=== PATIENT | male | born 1945 | race Caucasian/White ===

== ENCOUNTER → 2019-11-03 09:21 | Outpatient (CLI) | payer MEDICARE, OTHER, SELFPAY ==
--- NOTE | 2019-11-03 09:24 | DI.RAD.S_ITS ---
PROCEDURE: XR CHEST 2V INDICATIONS: Cough, right upper rattles on exam TECHNIQUE: 2 views of the chest were acquired. COMPARISON: None. FINDINGS: Surgical changes and devices: None. Lungs and pleura: Lungs are clear. No pleural effusions or pneumothorax. Mediastinum: Mediastinal contours are normal. Heart size is normal. Bones and chest wall: No suspicious bony abnormalities. Soft tissues appear unremarkable. IMPRESSION: No acute cardio pulmonary pathology. Dictated by: Michael Arroyo M.D. on 11/03/2019 at 9:47 Approved by: Michael Arroyo M.D. on 11/03/2019 at 9:51
== END ==
PROVIDERS: Visit Provider Nurse Practitioner
DX: R05 Cough (principal)
CPT/HCPCS: 71046

== ENCOUNTER → 2020-06-28 11:58 | Outpatient (CLI) | payer MEDICARE, OTHER, SELFPAY ==
--- NOTE | 2020-06-28 12:00 | DI.CT.S_ITS ---
PROCEDURE: CT CHEST ABD PEL W CON INDICATIONS: pancreatic cancer TECHNIQUE: After the administration of oral and intravenous contrast, 5 mm thick sections acquired from the lung apices to the symphysis. 5 mm coronal and sagittal reformats were performed, with additional 7 mm coronal MIP reformats through the lungs. For radiation dose reduction, the following was used: automated exposure control, adjustment of mA and/or kV according to patient size. COMPARISON: Outside Facility, , CT THORAX/ABDOMEN/PELVIS WITH CONTRAST, 05/15/2020, 12:43. FINDINGS: Image quality: Excellent. CHEST: Lungs and pleura: No acute airspace opacities. No pleural effusions or pneumothorax. Central and peripheral airways appear patent and normal in caliber. 4mm right upper lobe nodule, new compared to prior exam. Mediastinum: Heart size is normal. No pericardial effusion. No mediastinal or hilar adenopathy by size criteria. Thoracic aorta and central pulmonary arteries are normal in size. Minimal residual thrombus in the left pulmonary artery compared to prior exam. Esophagus is normal in caliber. No hiatal hernia. Chest wall: No axillary or supraclavicular adenopathy by size criteria. Thyroid gland demonstrates bilateral low attenuation foci, unchanged. ABDOMEN: Solid organs: Liver demonstrates multiple low attenuation foci. Several have overall demonstrated interval increases in size. The posterior medial lesion on series 2, image 57 has increased in size measuring 39 mm AP x 48 mm transverse compared to 28 mm AP x 26 mm transverse. The inferior lateral lesion, has also increased in size measuring 35 mm AP x 29 mm transverse compared to 15 mm AP x 20 mm transverse. In addition, a faintly visible 10 mm x 8 mm left hepatic lobe focus on series 2, image 59 appears new versus present as punctate lesion on prior exam. Remaining low-attenuation foci are unchanged. Renal cysts are unchanged. Gallbladder is unremarkable . Biliary system is non dilated. Pancreas enhances normally. Spleen is normal in size and enhancement. No adrenal nodules. Kidneys demonstrate normal size and enhancement, without hydronephrosis. Peritoneum and bowel: Bowel loops demonstrate normal wall thickness and caliber. No free fluid or air. Soft tissue nodule within the anterior mesenteric fat of the abdomen seen on series 2, image 69 mm compared to 13 mm on prior exam. A 2nd mesenteric soft tissue focus is noted in the right anterolateral abdomen on series 2, image 74 measuring 6 mm compared to 5 mm on prior exam. In addition, there is an ill-defined low-attenuation mass at the pancreatic tail in direct approximation to the gastric wall measuring approximately 20 mm in transverse dimension, unchanged and best seen on series 2, image 62. Nodes and vessels: No retroperitoneal or mesenteric adenopathy by size criteria. Aorta and inferior vena cava are normal in size. Miscellaneous: No ventral hernias. PELVIS: Genitourinary: Bladder wall thickness is normal. Miscellaneous: Bilateral fat containing inguinal hernias are present. Bones: Unchanged punctate sclerosis within the right lateral 7th rib. Unchanged sclerosis in the left lateral 5th rib. No vertebral body compression fractures. IMPRESSION: 1. New 4 mm right upper lobe nodule. Given history of neoplasm, finding is concerning for metastatic disease. Close interval follow-up is recommended 2. Minimal residual pulmonary embolism. 3. Interval increase in size of low-attenuation hepatic foci previously noted as metastatic disease. New versus punctate focus compared to prior exam in the left lobe is identified also most consistent with metastatic disease. 4. Unchanged sclerosis within the ribs as above, suspicious for metastatic disease particularly on the left. 5. Unchanged soft tissue densities within the mesenteric fat of the abdomen most concerning peritoneal carcinomatosis. 6. Unchanged low-attenuation foci within pancreas in direct approximation the liver as above. Dictated by: Dara Mejia M.D. on 07/02/2020 at 10:39 Approved by: Dara Mejia M.D. on 07/02/2020 at 11:03
== END ==
PROVIDERS: Referring Provider Internal Medicine Hematology & Oncology; Visit Provider Internal Medicine Hematology & Oncology
DX: C25.2 Malignant neoplasm of tail of pancreas; C78.7 Secondary malignant neoplasm of liver and intrahepatic bile duct; R91.1 Solitary pulmonary nodule; M89.9 Disorder of bone, unspecified; M79.9 Soft tissue disorder, unspecified
CPT/HCPCS: 71260; 74177; Q9967

== ENCOUNTER → 2020-11-13 15:50 | Outpatient (CLI) | payer MEDICARE, OTHER, SELFPAY ==
--- NOTE | 2020-11-13 15:52 | DI.RAD.S_ITS ---
PROCEDURE: XR CHEST 2V INDICATIONS: increased SHORTNESS OF BREATH TECHNIQUE: 2 views of the chest were acquired. COMPARISON: [facility], CR, XR CHEST 2V, 11/03/2019, 9:20. FINDINGS: Surgical changes and devices: Interval Port-A-Cath placement Lungs and pleura: Lungs are clear. Minimal linear atelectasis in the right lung base. No pleural effusions or pneumothorax. Mediastinum: Mediastinal contours are normal. Heart size is normal. Bones and chest wall: No suspicious bony abnormalities. Soft tissues appear unremarkable. IMPRESSION: Port-A-Cath in satisfactory position. No evidence acute pulmonary process. Dictated by: Vinod Huff M.D. on 11/13/2020 at 16:23 Approved by: Vinod Huff M.D. on 11/13/2020 at 16:24
== END ==
PROVIDERS: Referring Provider Internal Medicine; Visit Provider Internal Medicine
DX: Z45.2 Encounter for adjustment and management of vascular access device (principal); C25.9 Malignant neoplasm of pancreas, unspecified; R06.02 Shortness of breath
CPT/HCPCS: 71046

== ENCOUNTER → 2020-11-21 10:45 | Outpatient (CLI) | payer MEDICARE, OTHER, SELFPAY ==
--- NOTE | 2020-11-21 11:20 | DI.CT.S_ITS ---
PROCEDURE: CT CHEST ABD PEL WO CON INDICATIONS: Restaging pancreatic cancer, metastatic TECHNIQUE: After the administration of oral contrast, 5 mm thick sections acquired from the lung apices to the symphysis pubis. 5 mm thick coronal and sagittal reformats acquired, with additional 7 mm coronal MIP reformats through the lungs. For radiation dose reduction, the following was used: automated exposure control, adjustment of mA and/or kV according to patient size. COMPARISON: Outside Facility, RG, CT THORAX/ABDOMEN/PELVIS WITH CONTRAST, 05/15/2020, 12:43. [facility], CT, CT CHEST ABD PEL W CON, 06/28/2020, 13:27. FINDINGS: Image quality: Excellent. CHEST: Lungs and pleura: Interval increase in size of subcentimeter right apical nodule measuring 5 x 8 mm, previously 4 x 4 mm. Interval development of additional 4 mm pulmonary nodule seen in the right upper lobe image 16/3 as well as multiple anterior right upper lobe nodules measuring 3 mm seen on image 24/3. Additionally, multiple new left-sided subcentimeter pulmonary nodules. Please see montage image for detailed locations. Mediastinum: Heart size is normal. Coronary artery calcifications are present. No pericardial effusion. No mediastinal adenopathy by CT size criteria. Thoracic aorta and central pulmonary arteries are normal in size. Esophagus is normal in caliber. Small hiatal hernia Chest wall: No axillary or supraclavicular adenopathy by size criteria. Thyroid is grossly unremarkable ABDOMEN: Ill-defined hepatic metastasis present in the right lobe/dome measuring 7.8 x 6.2 cm, previously 4.4 x 3.5 cm. Additional hepatic metastases also noted, with interval progression since the prior study from 06/28/20. 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 Multiple confluent hypodense lesions in the inferior to the liver have also progressed. There are additional background low-attenuation liver cysts or treated metastases. The gallbladder is grossly unremarkable. Interval enlargement of soft tissue mass involving the body/tail the pancreas now measuring 3.8 x 3.8 cm, previously 2.3 x 2.5 cm again closely abutting the posterior gastric wall. Spleen is normal in size. No adrenal nodules. Left parapelvic cysts. Peritoneum and bowel: Small and large bowel loops are normal in caliber and wall thickness. No free fluid or air. Nodes and vessels: Aorta unremarkable. There is an enlarged mesenteric lymph node measuring up to 1.3 cm on image 77/4. Miscellaneous: Small periumbilical hernia.. PELVIS: Genitourinary: Bladder wall thickness is normal. Small bilateral fat containing inguinal hernias. Bones: Sclerotic left 5th rib lesion is unchanged. Sclerotic 7th right rib lesion is progressed since the prior study. IMPRESSION: Interval progression in soft tissue mass involving the body/tail the pancreas, which again closely abuts the posterior gastric wall. Progressive hepatic and pulmonary metastases as detailed above since 06/28/20. Increasing focal sclerosis involving the right lateral 7th rib suspicious for osseous metastatic disease. A previously seen left 5th rib sclerotic lesion is unchanged Enlarging mesenteric lymph node, also suspicious for metastatic involvement. Additional chronic and incidental findings as above. Dictated by: Lucas Pryor M.D. on 11/21/2020 at 14:37 Approved by: Lucas Pryor M.D. on 11/21/2020 at 15:07
== END ==
PROVIDERS: Referring Provider Internal Medicine Hematology & Oncology; Visit Provider Internal Medicine Hematology & Oncology
DX: C25.9 Malignant neoplasm of pancreas, unspecified (principal); C78.7 Secondary malignant neoplasm of liver and intrahepatic bile duct; C78.00 Secondary malignant neoplasm of unspecified lung; C79.51 Secondary malignant neoplasm of bone; C77.9 Secondary and unspecified malignant neoplasm of lymph node, unspecified
CPT/HCPCS: 71250; 74176

== ENCOUNTER → 2020-11-26 08:40 | Oncology outpatient (ONC) | payer MEDICARE, OTHER, SELFPAY ==
[2020-06-27 12:45] VITALS: BP 140/72; PULSE 84; RESP 18; TEMP 36.7; O2SAT 100
--- NOTE | 2020-06-27 12:51 | P.CONONC_ITS ---
History of Present Illness - Data of Consult Patient: new to practice Consult date: 06/27/20 Requesting Physician: Dr. Vinnie Swanson MD [facility] Primary Care Provider: Not yet established in [place], [place]. - Consult Narrative Reason for consult: Pancreatic cancer Narrative: Antonio Lam is a 74 year old male. 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 He first noticed abnormal umbilicus with discharge with [address] 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 The pathology showed metastatic adenocarcinoma. The comment indicated that represented a sister Patti briscoe. Cytokeratin 7 was positive. Cytokeratin 20, TTF -1, CD X -2 and P [address] chest abdomen and pelvis from 04/21/2018 showed a pancreatic tail mass 3.2 x 1.9 x 1.6 cm with no evidence of distant metastasis aside from known umbilical metastasis. Patient underwent chemotherapy with Gemzar and Abraxane completed in August 2018. He tolerated well. He said he was working during chemotherapy The Abraxane dosage was decreased by 25% for cycle 11 and 12 infusion. He has been under CT image surveillance scan every 2 months On 08/28/2019, CT showed the mass of the tail of the pancreas increased from 1.6 x 1.0 cm to 1.7 x 1.8 cm, no other sites of disease were seen. PET scan showed uptake in mitch pancreatic mass. He then completed stereotactic radiation therapy at the end of September 2019. In 01/2020 CT scan showed metastasis and PET scan confirmed metastasis found in ribs, lymph nodes, intestine, groin etc. He was then started on FOLFIRINOX. After 4th cycle, he said no to more chemoterhapy. On 05/15/2020 CT scan showed umbilical and had clinic masses appeared to have decreased, the left inguinal mass appear to increase her by progressive disease within the liver was noted as well as a new large saddle embolus. He was referred to ER. He was treated with heparin x 2 days, then Xarelto [address] Vinnie Long at [facility] recommended restarting gemzar and abraxane, and gemline testing. On 06/03/2020. BRCA1 and BRCA2 analysis showed no clinically significant mutation identified. He also underwent [employer] Hereditary Cancer Update Test, and no clinically significant mutation identified. VUS were noted including GALNT12 c.359G>C (p.[id number]), NTHL1 c.527T>C (p.[id number]), and RNF43 c.575C>T (p.[id number]). His works in here and the decided to transfer care from [facility] to [facility]. He denies shortness of breath. For the last couple of weeks, he did noticed heavier breathing when going uphill, but not down hill, like '[id number] feet' high. He is not on any chemotherapy at present. He is also worried about his blood pressure medicine losarten. He had used it for years. His blood pressure now has been way too low recently. He is feeling light-headed. He has cut the dosage, but her blood pressue is still low. Up until now he has not establish care with PCP or biology internship yet here. He reports no pain except pain at the sister Patti bell. He denies cough. He denies abdominal pain. His weight is now getting back up. He came in today with his . His most recent CA 19-9 was 1735 on 04/19/2020. Patient reports pain?: No Home Medications and Allergies Home Medications Medication Instructions Recorded Confirmed Type atorvastatin 20 mg PO DAILY 06/27/20 06/27/20 History dutasteride-tamsulosin 1 cap PO DAILY 06/27/20 06/27/20 History losartan-hydrochlorothiazide 1 tab DAILY 06/27/20 06/27/20 History nebivolol [Bystolic] 10 mg DAILY 06/27/20 06/27/20 History rivaroxaban [Xarelto] 20 mg PO DAILY 06/27/20 06/27/20 History Allergies Allergy/AdvReac Type Severity Reaction Status Date / Time No Known Drug Allergies Allergy Verified 11/03/19 08:48 Medical History - Medical, Surgical, Family History Medical History: Medical History (Last Updated 06/27/20 @ 13:19 by Kylie House MD) Hyperlipidemia Hypertension Surgical History: Surgical History (Last Updated 06/27/20 @ 13:21 by Kylie House MD) History of eyelid surgery History of sinus surgery Hx of inguinal hernia surgery Status post Mohs surgery for basal cell carcinoma Family History: Family History (Last Updated 06/27/20 @ 13:22 by Kylie House MD) Father Leukemia - Social History Smoking Status: Never smoker Substance Use Type: does not use Alcohol Intake: never Review of Systems - Patient Self-Reported Symptoms SR Constitution: Fatigue/Malaise All systems PM: reviewed and no additional remarkable complaints except as stated Exam Vital signs: Vital Signs Temp Pulse Resp BP Pulse Ox 06/27/20 12:45 98.1 F 84 18 140/72 100 Intake and Output 06/26/20 06/27/20 06/27/20 23:59 07:59 15:59 Other: Weight 86.8 kg Patient Weight 06/27/20 23:59 Weight 86.8 kg - Constitutional positive no acute distress, positive average body habitus, positive cooperative - Routine HEENT Exam Head: Present: normocephalic, atraumatic Eye: Present: EOMI, PERRL, normal accommodation. Absent: conjunctival icterus - Routine Neck Exam Present: supple. Absent: lymphadenopathy - Routine Chest/Breast/Axilla Exam Axillae: Absent: lymphadenopathy - Routine Respiratory Exam Present: Clear to auscultation bilaterally. Absent: wheezes - Routine Cardiovascular Exam Present: RRR, S1, S2. Absent: murmur, gallop, rubs - Routine Abdominal Exam Present: soft. Absent: tenderness, organomegaly Comments: Sister Loyd Huff nodule noted with discharge. - Routine Extremities Exam Absent: edema - Routine Neurological Exam Present: alert, oriented X3, CN II-XII intact. Absent: sensory deficit, motor deficit - Routine Psychiatric Exam Present: normal affect Results - Labs Laboratory Last Values WBC 6.1 X10^3/uL (4.5-11.0) 06/27/20 14:29 RBC 2.32 X10^6/uL (4.5-5.9) L 06/27/20 14:29 Hgb 6.0 g/dL (13.5-17.5) L* 06/27/20 14:29 Hct 19.4 % (41-53) L* 06/27/20 14:29 MCV 83.7 fL (80-100) 06/27/20 14:29 MCH 25.7 PG (26-34) L 06/27/20 14:29 MCHC 30.7 % (30-36) 06/27/20 14:29 RDW 18.8 % (11.6-14.8) H 06/27/20 14:29 Plt Count 141 X10^3/uL (150-400) L 06/27/20 14:29 Neut % (Auto) 71.8 % (50-75) 06/27/20 14:29 Lymph % (Auto) 14.9 % (25-40) L 06/27/20 14:29 [place] % (Auto) 9.6 % (3-14) 06/27/20 14:29 Eos % (Auto) 3.0 % (2-4) 06/27/20 14:29 Baso % (Auto) 0.7 % (0-2) 06/27/20 14:29 Neut # (Auto) 4400 /uL (6813-3486) 06/27/20 14:29 Lymph # (Auto) 900 /uL (8442-0835) L 06/27/20 14:29 [place] # (Auto) 600 /uL (0-900) 06/27/20 14:29 Eos # (Auto) 200 /uL (0-450) 06/27/20 14:29 Baso # (Auto) 0 /uL (0-100) 06/27/20 14:29 Sodium 139 mmol/L (137-145) 06/27/20 14:29 Potassium 3.9 mmol/L (3.4-5.1) 06/27/20 14:29 Chloride 107 mmol/L (98-107) 06/27/20 14:29 Carbon Dioxide 24 mmol/L (22-32) 06/27/20 14:29 BUN 22 mg/dL (9-20) H 06/27/20 14:29 Creatinine 0.85 mg/dL (0.66-1.25) 06/27/20 14:29 Estimated GFR > 60.0 mL/min (>60) 06/27/20 14:29 BUN/Creatinine Ratio 25.9 (6-22) H 06/27/20 14:29 Glucose 121 mg/dL (80-110) H 06/27/20 14:29 Calcium 8.7 mg/dL (8.4-10.2) 06/27/20 14:29 Total Bilirubin 0.4 mg/dL (0.2-1.3) 06/27/20 14:29 AST 20 IU/L (17-59) 06/27/20 14:29 ALT 17 IU/L (<50) 06/27/20 14:29 Alkaline Phosphatase 97 U/L (38-126) 06/27/20 14:29 Total Protein 6.3 g/dL (6.3-8.2) 06/27/20 14:29 Albumin 3.8 g/dL (3.5-5.0) 06/27/20 14:29 Globulin 2.5 g/dL (1.7-4.1) 06/27/20 14:29 Albumin/Globulin Ratio 1.5 (1.0-2.8) 06/27/20 14:29 CA 19-9 Antigen 1792 U/mL (0-35) H 06/27/20 14:29 Blood Type A Positive 06/27/20 14:33 Antibody Screen Negative 06/27/20 14:33 Crossmatch See Detail 06/27/20 14:33 Assessment and Plan (1) Pancreatic malignant neoplasm Overview: 74 year old with metastatic pancreatic cancer diagnosed on 04/08/2018 after punch biopsy of a sister Patti briscoe. After diagnosis, he has received Gemzar and Abraxane compelte in 08/2018. During to disease progression in 01/2020, he received FOLFIRINOX for [address] 05/15/2020 showed evidence of response and incidental findings of large saddle pulmonary embolism. He was started on heparin and then Xarelto. On 06/03/2020. BRCA1 and BRCA2 analysis showed no clinically significant mutation identified. He also underwent [employer] Hereditary Cancer Update Test, and no clinically significant mutation identified. VUS were noted including GALNT12 c.359G>C (p.Woy199Mcl), NTHL1 c.527T>C (p.[id number]), and RNF43 c.575C>T (p.[id number]). Dr. Vinnie Long, his medical oncologist, at [facility] recommended restarting gemzar and abraxane. His works in here and he decided to transfer care from [facility] to [facility]. Assessment: I explained to the patient that I would obtain repeat labs and scan to evaluate the current disease status before moving forward with more chemotherapy. Meanwhile, he will try to establish care with primary care at [place], [place]. Plan: CBC, CMP, and CA 19-9 CT CAP w/contrast RTC in 2 weeks
[2020-06-27 15:14] LABS: Add Manual Diff / Slide Review NO; Basophils Absolute Auto 0 /uL (0-100); Basophils Percent Auto 0.7 % (0-2); Eosinophils Absolute Auto 200 /uL (0-450); Lymphocytes Absolute Auto 900 /uL (1100-4500); Lymphocytes Percent Auto 14.9 % (25-40); Mean Corpuscular HGB Conc 30.7 % (30-36); Mean Corpuscular Hemoglobin 25.7 PG (26-34); Mean Corpuscular Volume 83.7 fL (80-100); Monocytes Absolute Auto 600 /uL (0-900); Monocytes Percent Auto 9.6 % (3-14); Neutrophils Absolute Auto 4400 /uL (1500-7000); Neutrophils Percent Auto 71.8 % (50-75); Platelet Count 141 X10^3/uL (150-400); Red Blood Cell Count 2.32 X10^6/uL (4.5-5.9); Red Cell Distribution Width 18.8 % (11.6-14.8); White Blood Cell Count 6.1 X10^3/uL (4.5-11.0)
[2020-06-27 15:16] LABS: Hematocrit 19.4 % (41-53)
[2020-06-27 15:48] LABS: Alanine Aminotransferase 17 IU/L (<50); Albumin 3.8 g/dL (3.5-5.0); Albumin Globulin Ratio 1.5 (1.0-2.8); Alkaline Phosphatase 97 U/L (38-126); Aspartate Aminotransferase 20 IU/L (17-59); BUN Creatinine Ratio 25.9 (6-22); Bilirubin Total 0.4 mg/dL (0.2-1.3); Blood Urea Nitrogen 22 mg/dL (9-20); Calcium 8.7 mg/dL (8.4-10.2); Carbon Dioxide 24 mmol/L (22-32); Chloride 107 mmol/L (98-107); Estimated Glomerular Filt Rate > 60.0 mL/min (>60); Globulin 2.5 g/dL (1.7-4.1); Glucose 121 mg/dL (80-110); HEMOLYSIS < 15 (0-50); Potassium 3.9 mmol/L (3.4-5.1); Sodium 139 mmol/L (137-145); Total Protein 6.3 g/dL (6.3-8.2)
[2020-06-27 17:23] VITALS: BP 145/69; PULSE 81; RESP 16; TEMP 36.7
[2020-06-27 17:45] VITALS: BP 140/70; PULSE 78; RESP 16; TEMP 36.8
[2020-06-27 19:56] VITALS: BP 139/70; PULSE 77; RESP 18; TEMP 36.8
[2020-06-28 06:06] LABS: Cancer (Carbohydrate) Ag 19-9 1792 U/mL (0-35)
[2020-06-28 14:06] VITALS: BP 151/77; PULSE 74; RESP 18; TEMP 37.5; O2SAT 100
[2020-06-28 14:10] VITALS: BP 142/76; PULSE 74; RESP 20; TEMP 36.9
[2020-06-28 14:40] VITALS: BP 142/68; PULSE 73; RESP 18; TEMP 37.2
--- NOTE | 2020-06-28 14:58 | PC.NURSE ---
Addendum entered by Marilou Haynes R.N. 06/28/20 15:18: Pt asymptomatic, ambulated to BR indep using IV pole with steady gait. Voided X1. Pt given egg and tuna half sandwiches. Original Note: Day Shift OP infusion- Pt arrived to unit up ad herlinda around 1400, settled into room 202 in recliner chair. Oriented to call light hanging on IV pole. Right chest port already accessed, clear dressing CDI. Flushed well with brisk blood return. VSS, afebrile. Consent for blood transfusion signed yesterday and pt confirms his signature on the written consent and verbally agrees with 2nd unit of transfusion today. RBC transfusion started slowly per hospital policy and protocol. VSS, afebrile and infusion increased to 150 ml/hr. Pt given water, orange juice, jello and pudding per his request. No further voiced concerns.
[2020-06-28 17:15] VITALS: BP 129/65; PULSE 75; RESP 16; TEMP 36.8
[2020-07-04 08:46] VITALS: BP 147/84; PULSE 80; RESP 18; TEMP 36.6; O2SAT 98
--- NOTE | 2020-07-04 08:52 | P.PNONC_ITS ---
PN -Subjective Interval history: ID/CC: 74 year old with recurrent metastatic pancreatic cancer HPI: Antonio Lam is a 74 year old male. 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 He first noticed abnormal umbilicus with discharge w ith [address] Michael Wen, his retail business analyst, did punch biopsy on 04/08/2018. The pathology showed metastatic adenocarcinoma. The comment indicated that represented a sister Patti briscoe. Cytokeratin 7 was positive. Cytokeratin 20, TTF -1, CD X -2 and P [address] chest abdomen and pelvis from 04/21/2018 showed a pancreatic tail mass 3.2 x 1.9 x 1.6 cm with no evidence of distant metastasis aside from known umbilical metastasis. Patient underwent chemotherapy with Gemzar and Abraxane completed in August 2018. He tolerated well. He said he was working during chemotherapy The Abraxane dosage was decreased by 25% for cycle 11 and 12 infusion. He has been under CT image surveillance scan every 2 months On 08/28/2019, CT showed the mass of the tail of the pancreas increased from 1.6 x 1.0 cm to 1.7 x 1.8 cm, no other sites of disease were seen. PET scan showed uptake in the pancreatic mass. He then completed stereotactic radiation therapy at the end of September 2019. In 01/2020 CT scan showed metastasis and PET scan confirmed metastasis found in ribs, lymph nodes, intestine, groin etc. He was then started on FOLFIRINOX. After 4th cycle, he said no to more chemoterhapy. On 05/15/2020 CT scan showed umbilical and had clinic masses appeared to have decreased, the left inguinal mass appear to increase her by progressive disease within the liver was noted as well as a new large saddle embolus. He was referred to ER. He was treated with heparin x 2 days, then Xarelto [address] Vinnie Long at [facility] recommended restarting gemzar and abraxane, and germline testing. On 06/03/2020. BRCA1 and BRCA2 analysis showed no clinically significant mutation identified. He also underwent [employer] Hereditary Cancer Update Test, and no clinically significant mutation identified. VUS were noted including GALNT12 c.359G>C (p.[id number]), NTHL1 c.527T>C (p.[id number]), and RNF43 c.575C>T (p.[id number]). His works in here and the decided to transfer care from [facility] to [facility]. He denies shortness of breath. For the last couple of weeks, he did noticed heavier breathing when going uphill, but not down hill, like '14371 feet' high. He is not on any chemotherapy at present. He is also worried about his blood pressure medicine losartan. He had used it for years. His blood pressure now has been way too low recently. He is feeling light-headed. He has cut the dosage, but her blood pressure is still low. Up until now he has not establish care with PCP or vice president of recruiting yet here. He reports no pain except pain at the sister Patti Huff node. He denies cough. He denies abdominal pain. His weight is now getting back up. He came in today with his . His most recent CA 19-9 was 1735 on 04/19/2020. Interval Events Since his previous visit, patient underwent CT of the chest abdomen pelvis on 06/28/2020. The scan showed new 4 mm right upper lobe nodule, interval increase in size of low attenuation hepatic foci, unchanged sclerosis within the ribs, unchanged soft tissue density within the mesenteric fat of the abdomen, and unchanged low attenuation foci within pancreas. Patient clinically has observed that the Sister Patti Huff nodule has increased in size and with some yellowish secretions. No fever no chills and no nausea no vomiting. - Patient Self-Reported Symptoms SR Constitution: Fatigue/Malaise - Additional ROS All systems PM: reviewed and no additional remarkable complaints except as stated Home Medications and Allergies Home Medications Medication Instructions Recorded Confirmed Type atorvastatin 20 mg PO DAILY 06/27/20 07/04/20 History dutasteride-tamsulosin 1 cap PO DAILY 06/27/20 07/04/20 History losartan-hydrochlorothiazide 1 tab DAILY 06/27/20 07/04/20 History nebivolol [Bystolic] 10 mg DAILY 06/27/20 06/27/20 History rivaroxaban [Xarelto] 20 mg PO DAILY 06/27/20 07/04/20 History Allergies Allergy/AdvReac Type Severity Reaction Status Date / Time No Known Drug Allergies Allergy Verified 11/03/19 08:48 Exam Vital signs: Vital Signs Temp Pulse Resp BP Pulse Ox 07/04/20 08:46 98 F 80 18 147/84 H 98 Intake and Output 07/03/20 07/04/20 07/04/20 23:59 07:59 15:59 Other: Weight 87.3 kg Patient Weight 07/04/20 23:59 Weight 87.3 kg - Constitutional positive no acute distress, positive average body habitus, positive chronically ill appearing, positive cooperative - Routine HEENT Exam Head: Present: normocephalic, atraumatic Eye: Present: EOMI, PERRL, normal accommodation. Absent: conjunctival icterus - Routine Neck Exam Present: supple. Absent: lymphadenopathy, thyromegaly - Routine Chest/Breast/Axilla Exam Axillae: Absent: lymphadenopathy - Routine Respiratory Exam Present: Clear to auscultation bilaterally. Absent: rales, wheezes, crackles - Routine Cardiovascular Exam Present: RRR, S1, S2. Absent: murmur, gallop, rubs - Routine Abdominal Exam Present: soft, mass (sister Patti Huff node noted, hard and tender, with palpable raised peripheral edge. Yellowish secretions noted. ). Absent: tenderness, organomegaly - Routine Extremities Exam Absent: edema - Routine Neurological Exam Present: alert, oriented X3, CN II-XII intact. Absent: sensory deficit, motor deficit - Routine Psychiatric Exam Present: normal affect Results - Labs Laboratory Last Values WBC 6.1 X10^3/uL (4.5-11.0) 06/27/20 14:29 RBC 2.32 X10^6/uL (4.5-5.9) L 06/27/20 14:29 Hgb 6.0 g/dL (13.5-17.5) L* 06/27/20 14:29 Hct 19.4 % (41-53) L* 06/27/20 14:29 MCV 83.7 fL (80-100) 06/27/20 14:29 MCH 25.7 PG (26-34) L 06/27/20 14:29 MCHC 30.7 % (30-36) 06/27/20 14:29 RDW 18.8 % (11.6-14.8) H 06/27/20 14:29 Plt Count 141 X10^3/uL (150-400) L 06/27/20 14:29 Neut % (Auto) 71.8 % (50-75) 06/27/20 14:29 Lymph % (Auto) 14.9 % (25-40) L 06/27/20 14:29 [place] % (Auto) 9.6 % (3-14) 06/27/20 14:29 Eos % (Auto) 3.0 % (2-4) 06/27/20 14:29 Baso % (Auto) 0.7 % (0-2) 06/27/20 14:29 Neut # (Auto) 4400 /uL (7916-8650) 06/27/20 14:29 Lymph # (Auto) 900 /uL (7118-6167) L 06/27/20 14:29 [place] # (Auto) 600 /uL (0-900) 06/27/20 14:29 Eos # (Auto) 200 /uL (0-450) 06/27/20 14:29 Baso # (Auto) 0 /uL (0-100) 06/27/20 14:29 Sodium 139 mmol/L (137-145) 06/27/20 14:29 Potassium 3.9 mmol/L (3.4-5.1) 06/27/20 14:29 Chloride 107 mmol/L (98-107) 06/27/20 14:29 Carbon Dioxide 24 mmol/L (22-32) 06/27/20 14:29 BUN 22 mg/dL (9-20) H 06/27/20 14:29 Creatinine 0.85 mg/dL (0.66-1.25) 06/27/20 14:29 Estimated GFR > 60.0 mL/min (>60) 06/27/20 14:29 BUN/Creatinine Ratio 25.9 (6-22) H 06/27/20 14:29 Glucose 121 mg/dL (80-110) H 06/27/20 14:29 Calcium 8.7 mg/dL (8.4-10.2) 06/27/20 14:29 Total Bilirubin 0.4 mg/dL (0.2-1.3) 06/27/20 14:29 AST 20 IU/L (17-59) 06/27/20 14:29 ALT 17 IU/L (<50) 06/27/20 14:29 Alkaline Phosphatase 97 U/L (38-126) 06/27/20 14:29 Total Protein 6.3 g/dL (6.3-8.2) 06/27/20 14:29 Albumin 3.8 g/dL (3.5-5.0) 06/27/20 14:29 Globulin 2.5 g/dL (1.7-4.1) 06/27/20 14:29 Albumin/Globulin Ratio 1.5 (1.0-2.8) 06/27/20 14:29 CA 19-9 Antigen 1792 U/mL (0-35) H 06/27/20 14:29 Blood Type A Positive 06/27/20 14:33 Antibody Screen Negative 06/27/20 14:33 Crossmatch See Detail 06/27/20 14:33 Assessment and Plan (1) Pancreatic malignant neoplasm Overview: 74 year old with metastatic pancreatic cancer diagnosed on 04/08/2018 after punch biopsy of a sister Patti briscoe. After diagnosis, he has received Gemzar and Abraxane compelte in 08/2018. During to disease progression in 01/2020, he received FOLFIRINOX for [address] 05/15/2020 showed evidence of response and incidental findings of large saddle pulmonary embolism. He was started on heparin and then Xarelto. On 06/03/2020. BRCA1 and BRCA2 analysis showed no clinically significant mutation identified. He also underwent [employer] Hereditary Cancer Update Test, and no clinically significant mutation identified. VUS were noted including GALNT12 c.359G>C (p.[id number]), NTHL1 c.527T>C (p.[id number]), and RNF43 c.575C>T (p.[id number]). Dr. Vinnie Long, his medical oncologist, at [facility] recommended restarting gemzar and abraxane. His works in here and he decided to transfer care from [facility] to [facility]. Assessment: Today I reviewed the CT scan results with the patient and also reviewed the laboratory tests with the patient. The CT did show new 4 mm lesion and interval increase in size of the hepatic foci. The laboratory tests showed that the CA 19-9 has increased significantly to more than 1700. I explained to the patient that these indicate that the underlying metastatic pancreatic adenocarcinoma has progressed consistent with clinical observation of increased sister Patti Huff Node. Next I talked with patient about potential options. Patient had gemcitabine Abraxane when he was first diagnosed with pancreatic cancer almost 2 years ago (08/2018). According to patient he responded very well with almost complete remission of the Sister Refugio nodule. In addition patient has tolerated the regimen well with only mild neuropathy. Unfortunately patient cannot tolerate the FOLFIRINOX regimen which is generally regarded as a stronger and better regimen. I talked with the patient that I would recommend that we retry the GemAbraxane regimen since it has been almost 2 years. Patient voiced understanding. I have tentatively scheduled the chemotherapy to be started next Wednesday on 07/08/2020. I touched base with him and his that the main concern with this regimen is bone marrow suppression and peripheral neuropathy. I will monitor closely and will provide supportive treatment including blood transfusion, growth factors and possibly antibiotics. In addition I talked with patient that we may consider using cold gloves or shoes to lessen the risk of peripheral neuropathy. Plan: GemAbraxen to be starrted 06/28/2020 RTC in 4 weeks (C2D1)
[2020-07-08 11:27] LABS: Add Manual Diff / Slide Review NO; Basophils Absolute Auto 100 /uL (0-100); Basophils Percent Auto 0.6 % (0-2); Eosinophils Absolute Auto 200 /uL (0-450); Eosinophils Percent Auto 2.1 % (2-4); Hematocrit 25.5 % (41-53); Hemoglobin 7.9 g/dL (13.5-17.5); Lymphocytes Absolute Auto 1200 /uL (1100-4500); Lymphocytes Percent Auto 12.4 % (25-40); Mean Corpuscular HGB Conc 30.9 % (30-36); Mean Corpuscular Hemoglobin 24.7 PG (26-34); Mean Corpuscular Volume 79.9 fL (80-100); Monocytes Absolute Auto 1100 /uL (0-900); Monocytes Percent Auto 11.6 % (3-14); Neutrophils Absolute Auto 6900 /uL (1500-7000); Neutrophils Percent Auto 73.3 % (50-75); Platelet Count 201 X10^3/uL (150-400); White Blood Cell Count 9.4 X10^3/uL (4.5-11.0)
[2020-07-08 11:41] LABS: Alanine Aminotransferase 18 IU/L (<50); Albumin 4.1 g/dL (3.5-5.0); Albumin Globulin Ratio 1.3 (1.0-2.8); Alkaline Phosphatase 113 U/L (38-126); Aspartate Aminotransferase 25 IU/L (17-59); BUN Creatinine Ratio 32.2 (6-22); Bilirubin Total 0.5 mg/dL (0.2-1.3); Blood Urea Nitrogen 37 mg/dL (9-20); Calcium 9.1 mg/dL (8.4-10.2); Carbon Dioxide 27 mmol/L (22-32); Chloride 105 mmol/L (98-107); Estimated Glomerular Filt Rate > 60.0 mL/min (>60); Globulin 3.1 g/dL (1.7-4.1); Glucose 121 mg/dL (80-110); HEMOLYSIS < 15 (0-50); Potassium 4.1 mmol/L (3.4-5.1); Sodium 141 mmol/L (137-145); Total Protein 7.2 g/dL (6.3-8.2)
[2020-07-08 12:08] VITALS: BP 94/52; PULSE 60; RESP 16; TEMP 36.8; O2SAT 98
[2020-07-08] MEDS: SODIUM CHLORIDE 0.9% 100 ML 21 ML IV (12:45)
[2020-07-08] MEDS: DEXAMETHASONE 10 MG/ML VIAL 8 MG IV (12:46)
[2020-07-08] MEDS: ONDANSETRON 8 MG in SODIUM CHLORIDE 0.9% 50 ML 216 ML IV (13:08)
[2020-07-08] MEDS: PACLITAXEL PROTEIN BOUND IV (14:39)
[2020-07-08] MEDS: SODIUM CHLORIDE 0.9% IV ×2 (14:39→15:34)
[2020-07-08] MEDS: GEMCITABINE HCL IV (15:34)
[2020-07-09 08:10] LABS: Cancer (Carbohydrate) Ag 19-9 3898 U/mL (0-35)
[2020-07-09 10:06] VITALS: BP 123/58; PULSE 77; RESP 20; TEMP 36.9
[2020-07-09 10:21] VITALS: BP 115/60; PULSE 72; RESP 18; TEMP 36.9
[2020-07-09 13:35] VITALS: BP 133/63; PULSE 74; RESP 16; TEMP 36.7
--- NOTE | 2020-07-15 14:34 | PC.NURSE ---
Addendum entered by Mikal Chen R.N. 08/12/20 08:39: Dr. House called pt Addendum entered by Mikal Chen R.N. 07/15/20 14:51: Dr. House wants to add CA19.9 to blood work for pt Original Note: Pt called to report feeling extremely fatigued. Pt wanted to discuss with provider the benefit/symptom for the course of Tx. Pt has not yet completed 1 cycle of Tx. Making provider aware with this note. Pt requested a conversation with the provider [phone]
[2020-07-16 10:40] VITALS: BP 115/47; PULSE 91; RESP 18; TEMP 36.9; O2SAT 99
[2020-07-16 10:41] LABS: Add Manual Diff / Slide Review NO; Basophils Absolute Auto 0 /uL (0-100); Basophils Percent Auto 0.6 % (0-2); Eosinophils Absolute Auto 300 /uL (0-450); Eosinophils Percent Auto 4.2 % (2-4); Hematocrit 22.3 % (41-53); Hemoglobin 7.1 g/dL (13.5-17.5); Lymphocytes Absolute Auto 1200 /uL (1100-4500); Lymphocytes Percent Auto 16.1 % (25-40); Mean Corpuscular HGB Conc 31.6 % (30-36); Mean Corpuscular Hemoglobin 25.2 PG (26-34); Mean Corpuscular Volume 79.8 fL (80-100); Monocytes Absolute Auto 700 /uL (0-900); Monocytes Percent Auto 9.1 % (3-14); Neutrophils Absolute Auto 5400 /uL (1500-7000); Platelet Count 128 X10^3/uL (150-400); Red Cell Distribution Width 20.4 % (11.6-14.8); White Blood Cell Count 7.7 X10^3/uL (4.5-11.0)
[2020-07-16 10:53] LABS: Alanine Aminotransferase 17 IU/L (<50); Albumin 3.8 g/dL (3.5-5.0); Albumin Globulin Ratio 1.3 (1.0-2.8); Alkaline Phosphatase 114 U/L (38-126); Aspartate Aminotransferase 20 IU/L (17-59); BUN Creatinine Ratio 30.6 (6-22); Bilirubin Total 0.5 mg/dL (0.2-1.3); Blood Urea Nitrogen 30 mg/dL (9-20); Calcium 8.9 mg/dL (8.4-10.2); Carbon Dioxide 26 mmol/L (22-32); Chloride 103 mmol/L (98-107); Estimated Glomerular Filt Rate > 60.0 mL/min (>60); Glucose 129 mg/dL (80-110); HEMOLYSIS < 15 (0-50); Potassium 3.6 mmol/L (3.4-5.1); Sodium 140 mmol/L (137-145); Total Protein 6.8 g/dL (6.3-8.2)
[2020-07-16 11:08] VITALS: BP 106/59; BP 81/53; PULSE 92; PULSE 98
[2020-07-16 11:10] LABS: Anisocytosis 2+
[2020-07-16 11:11] LABS: Hypochromasia 1+; Polychromasia 1+
[2020-07-16 12:17] VITALS: BP 115/47; PULSE 91; RESP 18; TEMP 36.9
[2020-07-16 12:35] VITALS: BP 107/65; PULSE 84; RESP 16; TEMP 36.9
[2020-07-16 14:48] VITALS: BP 114/63; PULSE 84; RESP 16; TEMP 36.8
[2020-07-17 09:52] VITALS: BP 137/65; PULSE 80; RESP 18; TEMP 36.8
[2020-07-17 10:09] VITALS: BP 121/55; PULSE 75; RESP 16; TEMP 36.7
[2020-07-17 12:45] VITALS: BP 129/66; PULSE 77; RESP 16; TEMP 36.7
[2020-07-19 16:13] LABS: Cancer (Carbohydrate) Ag 19-9 3608
[2020-07-22 08:40] LABS: Add Manual Diff / Slide Review NO; Basophils Absolute Auto 100 /uL (0-100); Basophils Percent Auto 0.8 % (0-2); Eosinophils Absolute Auto 300 /uL (0-450); Eosinophils Percent Auto 3.7 % (2-4); Hemoglobin 9.2 g/dL (13.5-17.5); Lymphocytes Absolute Auto 1000 /uL (1100-4500); Lymphocytes Percent Auto 15.1 % (25-40); Mean Corpuscular HGB Conc 31.9 % (30-36); Mean Corpuscular Hemoglobin 25.5 PG (26-34); Mean Corpuscular Volume 79.9 fL (80-100); Monocytes Absolute Auto 1100 /uL (0-900); Monocytes Percent Auto 16.3 % (3-14); Neutrophils Absolute Auto 4300 /uL (1500-7000); Neutrophils Percent Auto 64.1 % (50-75); Platelet Count 202 X10^3/uL (150-400); Red Blood Cell Count 3.62 X10^6/uL (4.5-5.9); Red Cell Distribution Width 19.7 % (11.6-14.8); White Blood Cell Count 6.8 X10^3/uL (4.5-11.0)
[2020-07-22 08:51] VITALS: BP 124/76; PULSE 72; RESP 72; TEMP 37.1; O2SAT 100
[2020-07-22 08:52] LABS: Alanine Aminotransferase 16 IU/L (<50); Albumin 3.9 g/dL (3.5-5.0); Albumin Globulin Ratio 1.3 (1.0-2.8); Alkaline Phosphatase 121 U/L (38-126); Aspartate Aminotransferase 21 IU/L (17-59); BUN Creatinine Ratio 15.7 (6-22); Bilirubin Total 0.8 mg/dL (0.2-1.3); Blood Urea Nitrogen 17 mg/dL (9-20); Carbon Dioxide 29 mmol/L (22-32); Chloride 103 mmol/L (98-107); Estimated Glomerular Filt Rate > 60.0 mL/min (>60); Globulin 2.9 g/dL (1.7-4.1); Glucose 108 mg/dL (80-110); HEMOLYSIS < 15 (0-50); Potassium 3.9 mmol/L (3.4-5.1); Sodium 140 mmol/L (137-145); Total Protein 6.8 g/dL (6.3-8.2)
--- NOTE | 2020-07-22 09:13 | ONC.PN ---
PN -Subjective Interval history: ID/CC: 74 year old with recurrent metastatic pancreatic cancer HPI: Antonio Lam is a 74 year old male. 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 He first noticed abnormal umbilicus with discharge with [address] Michael Wen, his marketing underwriter, did punch biopsy on 04/08/2018. The pathology showed metastatic adenocarcinoma. The comment indicated that represented a sister Patti briscoe. Cytokeratin 7 was positive. Cytokeratin 20, TTF -1, CD X -2 and P [address] chest abdomen and pelvis from 04/21/2018 showed a pancreatic tail mass 3.2 x 1.9 x 1.6 cm with no evidence of distant metastasis aside from known umbilical metastasis. Patient underwent chemotherapy with Gemzar and Abraxane completed in August 2018. He tolerated well. He said he was working during chemotherapy The Abraxane dosage was decreased by 25% for cycle 11 and 12 infusion. He has been under CT image surveillance scan every 2 months On 08/28/2019, CT showed the mass of the tail of the pancreas increased from 1.6 x 1.0 cm to 1.7 x 1.8 cm, no other sites of disease were seen. PET scan showed uptake in the pancreatic mass. He then completed stereotactic radiation therapy at the end of September 2019. In 01/2020 CT scan showed metastasis and PET scan confirmed metastasis found in ribs, lymph nodes, intestine, groin etc. He was then started on FOLFIRINOX. After 4th cycle, he said no to more chemoterhapy. On 05/15/2020 CT scan showed umbilical and had clinic masses appeared to have decreased, the left inguinal mass appear to increase her by progressive disease within the liver was noted as well as a new large saddle embolus. He was referred to ER. He was treated with heparin x 2 days, then Xarelto [address] Vinnie Long at [facility] recommended restarting gemzar and abraxane, and germline testing. On 06/03/2020. BRCA1 and BRCA2 analysis showed no clinically significant mutation identified. He also underwent nap- [employer] Hereditary Cancer Update Test, and no clinically significant mutation identified. VUS were noted including GALNT12 c.359G>C (p.[id number]), NTHL1 c.527T>C (p.[id number]), and RNF43 c.575C>T (p.[id number]). His works in here and the decided to transfer care from [facility] to [facility]. He denies shortness of breath. For the last couple of weeks, he did noticed heavier breathing when going uphill, but not down hill, like '45095 feet' high. He is not on any chemotherapy at present. He is also worried about his blood pressure medicine losartan. He had used it for years. His blood pressure now has been way too low recently. He is feeling light-headed. He has cut the dosage, but her blood pressure is still low. Up until now he has not establish care with PCP or director sales and marketing yet here. He reports no pain except pain at the sister Patti bell. He denies cough. He denies abdominal pain. His weight is now getting back up. He came in today with his . His most recent CA 19-9 was 1735 on 04/19/2020. Interval Events The patient underwent CT of the chest abdomen pelvis on 06/28/2020. The scan showed new 4 mm right upper lobe nodule, interval increase in size of low attenuation hepatic foci, unchanged sclerosis within the ribs, unchanged soft tissue density within the mesenteric fat of the abdomen, and unchanged low attenuation foci within pancreas. Patient clinically has observed that the Sister Patti Huff nodule has increased in size and with some yellowish secretions. No fever no chills and no nausea no vomiting. Patient was started on chemotherapy with gemcitabine and Abraxane on 07/08/2020. Patient has tolerated very well. The tumor markers began to go down. The sister Patti bell seems to be stable and not increasing any more. He denies any shortness of breath. He does complain irritative dry cough. He does not have any abdominal pain. He does not have any nausea or vomiting. - Patient Self-Reported Symptoms SR Constitution: Fatigue/Malaise SR ears, nose, mouth, throat issues: Cough - Additional ROS All systems PM: reviewed and no additional remarkable complaints except as stated Home Medications and Allergies Home Medications Medication Instructions Recorded Confirmed Type atorvastatin 20 mg PO DAILY 06/27/20 07/22/20 History dutasteride-tamsulosin 1 cap PO DAILY 06/27/20 07/22/20 History losartan-hydrochlorothiazide 1 tab DAILY 06/27/20 07/22/20 History rivaroxaban [Xarelto] 20 mg PO DAILY 06/27/20 07/22/20 History Allergies Allergy/AdvReac Type Severity Reaction Status Date / Time No Known Drug Allergies Allergy Verified 11/03/19 08:48 Exam Vital signs: Vital Signs Temp Pulse Resp BP Pulse Ox 07/22/20 08:51 98.8 F 72 72 H 124/76 100 Intake and Output 07/21/20 07/22/20 07/22/20 23:59 07:59 15:59 Other: Weight 83.5 kg Patient Weight 07/22/20 23:59 Weight 83.5 kg - Constitutional positive no acute distress, positive average body habitus, positive chronically ill appearing, positive cooperative - Routine HEENT Exam Head: Present: normocephalic, atraumatic Eye: Present: EOMI, PERRL, normal accommodation. Absent: conjunctival icterus - Routine Neck Exam Present: supple. Absent: lymphadenopathy, thyromegaly - Routine Respiratory Exam Present: Clear to auscultation bilaterally. Absent: wheezes - Routine Cardiovascular Exam Present: RRR, S1, S2. Absent: murmur, gallop, rubs - Routine Abdominal Exam Present: soft. Absent: tenderness, distended - Routine Extremities Exam Absent: edema - Routine Neurological Exam Present: alert, oriented X3, CN II-XII intact. Absent: sensory deficit, motor deficit - Routine Psychiatric Exam Present: normal affect Results - Labs Laboratory Last Values WBC 6.8 X10^3/uL (4.5-11.0) 07/22/20 08:25 RBC 3.62 X10^6/uL (4.5-5.9) L 07/22/20 08:25 Hgb 9.2 g/dL (13.5-17.5) L 07/22/20 08:25 Hct 29.0 % (41-53) L 07/22/20 08:25 MCV 79.9 fL (80-100) L 07/22/20 08:25 MCH 25.5 PG (26-34) L 07/22/20 08:25 MCHC 31.9 % (30-36) 07/22/20 08:25 RDW 19.7 % (11.6-14.8) H 07/22/20 08:25 Plt Count 202 X10^3/uL (150-400) 07/22/20 08:25 Neut % (Auto) 64.1 % (50-75) 07/22/20 08:25 Lymph % (Auto) 15.1 % (25-40) L 07/22/20 08:25 [place] % (Auto) 16.3 % (3-14) H 07/22/20 08:25 Eos % (Auto) 3.7 % (2-4) 07/22/20 08:25 Baso % (Auto) 0.8 % (0-2) 07/22/20 08:25 Neut # (Auto) 4300 /uL (8936-9927) 07/22/20 08:25 Lymph # (Auto) 1000 /uL (4932-1334) L 07/22/20 08:25 [place] # (Auto) 1100 /uL (0-900) H 07/22/20 08:25 Eos # (Auto) 300 /uL (0-450) 07/22/20 08:25 Baso # (Auto) 100 /uL (0-100) 07/22/20 08:25 RBC Morphology See below 07/16/20 10:27 Polychromasia 1+ H 07/16/20 10:27 Hypochromasia 1+ H 07/16/20 10:27 Anisocytosis 2+ H 07/16/20 10:27 Sodium 140 mmol/L (137-145) 07/22/20 08:25 Potassium 3.9 mmol/L (3.4-5.1) 07/22/20 08:25 Chloride 103 mmol/L (98-107) 07/22/20 08:25 Carbon Dioxide 29 mmol/L (22-32) 07/22/20 08:25 BUN 17 mg/dL (9-20) 07/22/20 08:25 Creatinine 1.08 mg/dL (0.66-1.25) 07/22/20 08:25 Estimated GFR > 60.0 mL/min (>60) 07/22/20 08:25 BUN/Creatinine Ratio 15.7 (6-22) 07/22/20 08:25 Glucose 108 mg/dL (80-110) 07/22/20 08:25 Calcium 9.0 mg/dL (8.4-10.2) 07/22/20 08:25 Total Bilirubin 0.8 mg/dL (0.2-1.3) 07/22/20 08:25 AST 21 IU/L (17-59) 07/22/20 08:25 ALT 16 IU/L (<50) 07/22/20 08:25 Alkaline Phosphatase 121 U/L (38-126) 07/22/20 08:25 Total Protein 6.8 g/dL (6.3-8.2) 07/22/20 08:25 Albumin 3.9 g/dL (3.5-5.0) 07/22/20 08:25 Globulin 2.9 g/dL (1.7-4.1) 07/22/20 08:25 Albumin/Globulin Ratio 1.3 (1.0-2.8) 07/22/20 08:25 CA 19-9 Antigen 3608 07/16/20 10:27 Blood Type A Positive 07/16/20 10:27 Antibody Screen Negative 07/16/20 10:27 Crossmatch See Detail 07/16/20 10:27 Assessment and Plan (1) Pancreatic malignant neoplasm Overview: 74 year old with metastatic pancreatic cancer diagnosed on 04/08/2018 after punch biopsy of a sister Patti briscoe. After diagnosis, he has received Gemzar and Abraxane compelte in 08/2018. He had disease progression in 01/2020, he received FOLFIRINOX for [address] 05/15/2020 showed evidence of response and incidental findings of large saddle pulmonary embolism. He was started on heparin and then Xarelto. On 06/03/2020. BRCA1 and BRCA2 analysis showed no clinically significant mutation identified. He also underwent nap- Naturally [employer] Parents Hereditary Cancer Update Test, and no clinically significant mutation identified. VUS were noted including GALNT12 c.359G>C (p.[id number]), NTHL1 c.527T>C (p.[id number]), and RNF43 c.575C>T (p.[id number]). Dr. Vinnie Long, his medical oncologist, at [facility] recommended restarting gemzar and abraxane. His works in here and he decided to transfer care from [facility] to [facility]. CT scan results with the patient and also reviewed the laboratory tests with the patient. The CT did show new 4 mm lesion and interval increase in size of the hepatic foci. The laboratory tests showed that the CA 19-9 has increased significantly to more than 1700. I explained to the patient that these indicate that the underlying metastatic pancreatic adenocarcinoma has progressed consistent with clinical observation of increased sister Patti Huff Node. Assessment: Today I reviewed the CBCs and CMPs with the patient. They are unremarkable. Patient has tolerated the first cycle 1 day 1 treatment with gemcitabine and Abraxane very well. Talked with the patient that I will continue as planned. Plan: Ok to proceed to GemAbraxen C1D8 Continue C1D15 as RN visit only RTC on C2D1, labs per protocol
[2020-07-22] MEDS: DEXAMETHASONE 10 MG/ML VIAL 8 MG IV (10:11)
[2020-07-22] MEDS: ONDANSETRON 8 MG in SODIUM CHLORIDE 0.9% 50 ML 216 ML IV (10:11)
[2020-07-22] MEDS: SODIUM CHLORIDE 0.9% 100 ML 21 ML IV (10:11)
[2020-07-22] MEDS: PACLITAXEL PROTEIN BOUND IV (11:53)
[2020-07-22] MEDS: SODIUM CHLORIDE 0.9% IV ×2 (11:53→12:52)
[2020-07-22] MEDS: GEMCITABINE HCL IV (12:52)
[2020-07-23 07:39] LABS: Cancer (Carbohydrate) Ag 19-9 3533 U/mL (0-35)
[2020-07-29 10:22] VITALS: BP 114/59; PULSE 85; RESP 18; TEMP 36.6; O2SAT 99
[2020-07-29 10:23] LABS: Add Manual Diff / Slide Review NO; Basophils Absolute Auto 100 /uL (0-100); Basophils Percent Auto 0.8 % (0-2); Eosinophils Absolute Auto 300 /uL (0-450); Eosinophils Percent Auto 4.2 % (2-4); Hematocrit 27.4 % (41-53); Hemoglobin 8.8 g/dL (13.5-17.5); Lymphocytes Absolute Auto 1200 /uL (1100-4500); Lymphocytes Percent Auto 17.5 % (25-40); Mean Corpuscular HGB Conc 32.1 % (30-36); Mean Corpuscular Hemoglobin 25.1 PG (26-34); Mean Corpuscular Volume 78.4 fL (80-100); Monocytes Absolute Auto 800 /uL (0-900); Monocytes Percent Auto 11.4 % (3-14); Neutrophils Absolute Auto 4400 /uL (1500-7000); Neutrophils Percent Auto 66.1 % (50-75); Platelet Count 147 X10^3/uL (150-400); Red Blood Cell Count 3.49 X10^6/uL (4.5-5.9); White Blood Cell Count 6.6 X10^3/uL (4.5-11.0)
[2020-07-29 10:28] LABS: Alanine Aminotransferase 25 IU/L (<50); Albumin 3.8 g/dL (3.5-5.0); Albumin Globulin Ratio 1.2 (1.0-2.8); Alkaline Phosphatase 127 U/L (38-126); Aspartate Aminotransferase 22 IU/L (17-59); BUN Creatinine Ratio 18.6 (6-22); Bilirubin Total 0.6 mg/dL (0.2-1.3); Blood Urea Nitrogen 18 mg/dL (9-20); Calcium 9.1 mg/dL (8.4-10.2); Carbon Dioxide 27 mmol/L (22-32); Chloride 102 mmol/L (98-107); Estimated Glomerular Filt Rate > 60.0 mL/min (>60); Globulin 3.3 g/dL (1.7-4.1); Glucose 110 mg/dL (80-110); HEMOLYSIS < 15 (0-50); Potassium 4.2 mmol/L (3.4-5.1); Sodium 138 mmol/L (137-145); Total Protein 7.1 g/dL (6.3-8.2)
[2020-07-30 07:09] LABS: Cancer (Carbohydrate) Ag 19-9 2923 U/mL (0-35)
[2020-08-05 10:41] LABS: Add Manual Diff / Slide Review NO; Basophils Absolute Auto 100 /uL (0-100); Basophils Percent Auto 0.8 % (0-2); Eosinophils Absolute Auto 200 /uL (0-450); Eosinophils Percent Auto 2.9 % (2-4); Hematocrit 29.5 % (41-53); Hemoglobin 9.3 g/dL (13.5-17.5); Lymphocytes Absolute Auto 1300 /uL (1100-4500); Lymphocytes Percent Auto 16.6 % (25-40); Mean Corpuscular HGB Conc 31.6 % (30-36); Mean Corpuscular Hemoglobin 24.8 PG (26-34); Mean Corpuscular Volume 78.3 fL (80-100); Monocytes Absolute Auto 1300 /uL (0-900); Monocytes Percent Auto 15.7 % (3-14); Neutrophils Absolute Auto 5200 /uL (1500-7000); Platelet Count 314 X10^3/uL (150-400); Red Blood Cell Count 3.77 X10^6/uL (4.5-5.9); Red Cell Distribution Width 20.6 % (11.6-14.8); White Blood Cell Count 8.1 X10^3/uL (4.5-11.0)
[2020-08-05 10:53] VITALS: BP 111/56; PULSE 81; RESP 18; TEMP 37.7; O2SAT 98
[2020-08-05 10:54] LABS: Alanine Aminotransferase 18 IU/L (<50); Albumin 3.9 g/dL (3.5-5.0); Albumin Globulin Ratio 1.3 (1.0-2.8); Alkaline Phosphatase 130 U/L (38-126); Aspartate Aminotransferase 26 IU/L (17-59); BUN Creatinine Ratio 22.7 (6-22); Bilirubin Total 0.5 mg/dL (0.2-1.3); Blood Urea Nitrogen 22 mg/dL (9-20); Carbon Dioxide 28 mmol/L (22-32); Chloride 103 mmol/L (98-107); Estimated Glomerular Filt Rate > 60.0 mL/min (>60); Globulin 3.1 g/dL (1.7-4.1); Glucose 120 mg/dL (80-110); HEMOLYSIS < 15 (0-50); Potassium 4.1 mmol/L (3.4-5.1); Sodium 139 mmol/L (137-145)
[2020-08-05 10:56] LABS: Anisocytosis 2+; Microcytosis 2+
[2020-08-05] MEDS: SODIUM CHLORIDE 0.9% 100 ML 21 ML IV (12:11)
[2020-08-05] MEDS: DEXAMETHASONE 10 MG/ML VIAL 8 MG IV (12:12)
[2020-08-05] MEDS: ONDANSETRON 8 MG in SODIUM CHLORIDE 0.9% 50 ML 216 ML IV (13:02)
[2020-08-05] MEDS: SODIUM CHLORIDE 0.9% IV ×2 (13:18→14:10)
[2020-08-05] MEDS: PACLITAXEL PROTEIN BOUND IV (13:18)
[2020-08-05] MEDS: GEMCITABINE HCL IV (14:10)
[2020-08-06 10:08] LABS: Cancer (Carbohydrate) Ag 19-9 3664 U/mL (0-35)
[2020-08-12 12:13] LABS: Add Manual Diff / Slide Review NO; Basophils Absolute Auto 0 /uL (0-100); Basophils Percent Auto 0.6 % (0-2); Eosinophils Absolute Auto 200 /uL (0-450); Eosinophils Percent Auto 3.1 % (2-4); Hematocrit 28.7 % (41-53); Hemoglobin 9.1 g/dL (13.5-17.5); Lymphocytes Absolute Auto 1100 /uL (1100-4500); Lymphocytes Percent Auto 14.2 % (25-40); Mean Corpuscular HGB Conc 31.8 % (30-36); Mean Corpuscular Hemoglobin 24.3 PG (26-34); Mean Corpuscular Volume 76.4 fL (80-100); Monocytes Absolute Auto 800 /uL (0-900); Monocytes Percent Auto 10.4 % (3-14); Neutrophils Absolute Auto 5600 /uL (1500-7000); Neutrophils Percent Auto 71.7 % (50-75); Platelet Count 174 X10^3/uL (150-400); Red Blood Cell Count 3.76 X10^6/uL (4.5-5.9); Red Cell Distribution Width 20.7 % (11.6-14.8); White Blood Cell Count 7.9 X10^3/uL (4.5-11.0)
[2020-08-12 12:26] LABS: Alanine Aminotransferase 27 IU/L (<50); Albumin 3.9 g/dL (3.5-5.0); Albumin Globulin Ratio 1.1 (1.0-2.8); Alkaline Phosphatase 140 U/L (38-126); Aspartate Aminotransferase 26 IU/L (17-59); BUN Creatinine Ratio 31.8 (6-22); Bilirubin Total 0.5 mg/dL (0.2-1.3); Blood Urea Nitrogen 27 mg/dL (9-20); Calcium 9.2 mg/dL (8.4-10.2); Carbon Dioxide 28 mmol/L (22-32); Chloride 104 mmol/L (98-107); Estimated Glomerular Filt Rate > 60.0 mL/min (>60); Globulin 3.4 g/dL (1.7-4.1); Glucose 120 mg/dL (80-110); HEMOLYSIS < 15 (0-50); Potassium 4.1 mmol/L (3.4-5.1); Sodium 139 mmol/L (137-145); Total Protein 7.3 g/dL (6.3-8.2)
[2020-08-12 12:28] LABS: Anisocytosis 2+
[2020-08-12 13:43] VITALS: BP 121/70; PULSE 83; RESP 16; TEMP 36.7; O2SAT 98
[2020-08-12] MEDS: SODIUM CHLORIDE 0.9% 1,000 ML 1000 ML IV (13:45)
--- NOTE | 2020-08-12 14:25 | ONC.MSW ---
*Pt received a Chemo Quilt.
[2020-08-14 07:18] LABS: Cancer (Carbohydrate) Ag 19-9 2132 U/mL (0-35)
[2020-08-19 09:17] LABS: Add Manual Diff / Slide Review NO; Basophils Absolute Auto 0 /uL (0-100); Basophils Percent Auto 0.6 % (0-2); Eosinophils Absolute Auto 300 /uL (0-450); Eosinophils Percent Auto 3.4 % (2-4); Hematocrit 27.5 % (41-53); Hemoglobin 8.7 g/dL (13.5-17.5); Lymphocytes Absolute Auto 1000 /uL (1100-4500); Lymphocytes Percent Auto 13.3 % (25-40); Mean Corpuscular HGB Conc 31.7 % (30-36); Mean Corpuscular Hemoglobin 24.1 PG (26-34); Monocytes Absolute Auto 1500 /uL (0-900); Monocytes Percent Auto 18.9 % (3-14); Neutrophils Absolute Auto 4900 /uL (1500-7000); Neutrophils Percent Auto 63.8 % (50-75); Platelet Count 258 X10^3/uL (150-400); Red Blood Cell Count 3.62 X10^6/uL (4.5-5.9); Red Cell Distribution Width 21.1 % (11.6-14.8); White Blood Cell Count 7.8 X10^3/uL (4.5-11.0)
[2020-08-19 09:20] VITALS: BP 157/73; PULSE 97; RESP 16; TEMP 37; O2SAT 99
--- NOTE | 2020-08-19 09:27 | P.PNONC_ITS ---
PN -Subjective Interval history: ID/CC: 74 year old with recurrent metastatic pancreatic cancer HPI: Antonio Lam is a 74 year old male. 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 He first noticed abnormal umbilicus with discharge w ith [address] Michael Wen, his audioprosthologist, did punch biopsy on 04/08/2018. The pathology showed metastatic adenocarcinoma. The comment indicated that represented a sister Patti briscoe. Cytokeratin 7 was positive. Cytokeratin 20, TTF-1, CDX-[address] chest abdomen and pelvis from 04/21/2018 showed a pancreatic tail mass 3.2 x 1.9 x 1.6 cm with no evidence of distant metastasis aside from known umbilical metastasis. Patient underwent chemotherapy with Gemzar and Abraxane completed 6 cycles in Aug 2018. He tolerated well. He said he was working during chemotherapy. The Abraxane dosage was decreased by 25% for cycle 11 and 12 infusion. He has been under CT image surveillance scan every 2 months On 08/28/2019, CT showed the mass of the tail of the pancreas increased from 1.6 x 1.0 cm to 1.7 x 1.8 cm, no other sites of disease were seen. PET scan showed uptake in the pancreatic mass. He then completed stereotactic radiation therapy at the end of September 2019. In 01/2020 CT scan showed metastasis and PET scan confirmed metastasis found in ribs, lymph nodes, intestine, groin etc. He was then started on FOLFIRINOX. After 4th cycle, he said no to more chemoterhapy. On 05/15/2020 CT scan showed umbilical and had clinic masses appeared to have decreased, the left inguinal mass appear to increase her by progressive disease within the liver was noted as well as a new large saddle embolus. He was referred to ER. He was treated with heparin x 2 days, then Xarelto [address] Vinnie Long at [facility] recommended restarting gemzar and abraxane, and germline testing. On 06/03/2020. BRCA1 and BRCA2 analysis showed no clinically significant mutation identified. He also underwent [place] Hereditary Cancer Update Test, and no clinically significant mutation identified. VUS were noted including GALNT12 c.359G>C (p.Yld681Arg), NTHL1 c.527T>C (p.[id number]), and RNF43 c.575C>T (p.[id number]). 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 Interval Events The patient underwent CT of the chest abdomen pelvis on 06/28/2020. The scan showed new 4 mm right upper lobe nodule, interval increase in size of low attenuation hepatic foci, unchanged sclerosis within the ribs, unchanged soft tissue density within the mesenteric fat of the abdomen, and unchanged low attenuation foci within pancreas. At that time, he also observed that the Sister Patti Huff nodule had increased in size and with some yellowish secretions. Patient was started on chemotherapy with gemcitabine and Abraxane on 07/08/2020. Patient today told me that he has felt significant fatigued until just about 2 days ago when he finally felt better. He said he was so tired and was not able to do anything. Over the past 2 days, he felt dramatically better and he was able to hike without significant difficulty and without significant shortness of breath. He denies any fever or chills. He denies any nausea or vomiting. The umbilical sister Patti Huff node has crusted and become less symptomatic. He described it as more like sting. - Patient Self-Reported Symptoms SR Constitution: Fatigue/Malaise SR ears, nose, mouth, throat issues: Cough - Additional ROS All systems PM: reviewed and no additional remarkable complaints except as stated Home Medications and Allergies Home Medications Medication Instructions Recorded Confirmed Type atorvastatin 20 mg PO DAILY 06/27/20 07/22/20 History dutasteride-tamsulosin 1 cap PO DAILY 06/27/20 07/22/20 History losartan-hydrochlorothiazide 1 tab DAILY 06/27/20 07/22/20 History rivaroxaban [Xarelto] 20 mg PO DAILY 06/27/20 07/22/20 History codeine-guaifenesin 10 ml PO Q4-6H PRN #250 ml 07/29/20 Rx Allergies Allergy/AdvReac Type Severity Reaction Status Date / Time No Known Drug Allergies Allergy Verified 11/03/19 08:48 Exam Vital signs: Vital Signs Temp Pulse Resp BP Pulse Ox 08/19/20 09:20 98.6 F 97 H 16 157/73 H 99 Intake and Output 08/18/20 08/19/20 08/19/20 23:59 07:59 15:59 Other: Weight 82 kg Patient Weight 08/19/20 23:59 Weight 82 kg - Constitutional positive no acute distress, positive average body habitus, positive chronically ill appearing, positive cooperative - Routine HEENT Exam Head: Present: normocephalic, atraumatic Eye: Present: EOMI, PERRL, normal accommodation. Absent: conjunctival icterus - Routine Neck Exam Present: supple. Absent: lymphadenopathy, thyromegaly, tenderness - Routine Chest/Breast/Axilla Exam Axillae: Absent: lymphadenopathy - Routine Respiratory Exam Present: Clear to auscultation bilaterally. Absent: wheezes - Routine Cardiovascular Exam Present: RRR, S1, S2. Absent: murmur, gallop, rubs - Routine Abdominal Exam Present: soft. Absent: tenderness Comments: Sister Patti bell noted last swallowing and crusted. - Routine Extremities Exam Absent: edema - Routine Neurological Exam Present: alert, oriented X3, CN II-XII intact. Absent: sensory deficit, motor deficit - Routine Psychiatric Exam Present: normal affect Results - Labs Laboratory Last Values WBC 7.8 X10^3/uL (4.5-11.0) 08/19/20 09:10 RBC 3.62 X10^6/uL (4.5-5.9) L 08/19/20 09:10 Hgb 8.7 g/dL (13.5-17.5) L 08/19/20 09:10 Hct 27.5 % (41-53) L 08/19/20 09:10 MCV 76.0 fL (80-100) L 08/19/20 09:10 MCH 24.1 PG (26-34) L 08/19/20 09:10 MCHC 31.7 % (30-36) 08/19/20 09:10 RDW 21.1 % (11.6-14.8) H 08/19/20 09:10 Plt Count 258 X10^3/uL (150-400) 08/19/20 09:10 Neut % (Auto) 63.8 % (50-75) 08/19/20 09:10 Lymph % (Auto) 13.3 % (25-40) L 08/19/20 09:10 [place] % (Auto) 18.9 % (3-14) H 08/19/20 09:10 Eos % (Auto) 3.4 % (2-4) 08/19/20 09:10 Baso % (Auto) 0.6 % (0-2) 08/19/20 09:10 Neut # (Auto) 4900 /uL (5039-2706) 08/19/20 09:10 Lymph # (Auto) 1000 /uL (8008-6786) L 08/19/20 09:10 [place] # (Auto) 1500 /uL (0-900) H 08/19/20 09:10 Eos # (Auto) 300 /uL (0-450) 08/19/20 09:10 Baso # (Auto) 0 /uL (0-100) 08/19/20 09:10 RBC Morphology See below 08/19/20 09:10 Polychromasia 1+ H 08/19/20 09:10 Hypochromasia 1+ H 07/16/20 10:27 Poikilocytosis 1+ H 08/19/20 09:10 Basophilic Stippling 1+ H 08/19/20 09:10 Anisocytosis 2+ H 08/19/20 09:10 Microcytosis 2+ H 08/05/20 10:30 Ovalocytes 1+ H 08/19/20 09:10 Sodium 140 mmol/L (137-145) 08/19/20 09:10 Potassium 4.0 mmol/L (3.4-5.1) 08/19/20 09:10 Chloride 106 mmol/L (98-107) 08/19/20 09:10 Carbon Dioxide 27 mmol/L (22-32) 08/19/20 09:10 BUN 25 mg/dL (9-20) H 08/19/20 09:10 Creatinine 1.07 mg/dL (0.66-1.25) 08/19/20 09:10 Estimated GFR > 60.0 mL/min (>60) 08/19/20 09:10 BUN/Creatinine Ratio 23.4 (6-22) H 08/19/20 09:10 Glucose 123 mg/dL (80-110) H 08/19/20 09:10 Calcium 9.1 mg/dL (8.4-10.2) 08/19/20 09:10 Total Bilirubin 0.6 mg/dL (0.2-1.3) 08/19/20 09:10 AST 24 IU/L (17-59) 08/19/20 09:10 ALT 16 IU/L (<50) 08/19/20 09:10 Alkaline Phosphatase 121 U/L (38-126) 08/19/20 09:10 Total Protein 7.1 g/dL (6.3-8.2) 08/19/20 09:10 Albumin 3.8 g/dL (3.5-5.0) 08/19/20 09:10 Globulin 3.3 g/dL (1.7-4.1) 08/19/20 09:10 Albumin/Globulin Ratio 1.2 (1.0-2.8) 08/19/20 09:10 CA 19-9 Antigen 2132 U/mL (0-35) H 08/12/20 14:20 Blood Type A Positive 07/16/20 10:27 Antibody Screen Negative 07/16/20 10:27 Crossmatch See Detail 07/16/20 10:27 Assessment and Plan (1) Pancreatic malignant neoplasm Overview: 74 year old with metastatic pancreatic cancer diagnosed on 04/08/2018 after punch biopsy of a sister Patti briscoe. After diagnosis, he has received Gemzar and Abraxane completed in 08/2018. He had disease progression in 01/2020, he received FOLFIRINOX for [address] 05/15/2020 showed evidence of response and incidental findings of large saddle pulmonary embolism. He was started on heparin and then Xarelto. On 06/03/2020. BRCA1 and BRCA2 analysis showed no clinically significant mutation identified. He also underwent [place] Hereditary Cancer Update Test, and no clinically significant mutation identified. VUS were noted including GALNT12 c.359G>C (p.[id number]), NTHL1 c.527T>C (p.[id number]), and RNF43 c.575C>T (p.[id number]). Dr. Vinnie Long, his medical oncologist, at [facility] recommended restarting gemzar and abraxane. His works in here and he decided to transfer care from [facility] to [facility]. Patient was started on chemotherapy with gemcitabine and Abraxane on 07/08/2020. Assessment: I reviewed the lab results with the patient. The CA 19-9 seems to be trending down. Clinically the Sister Patti bell has decreased in size and become crusted with less symptoms. All of these indicates that he has responded to the treatment with gemcitabine and Abraxane. However Antonio did experienced significant fatigue which I would rate as grade 2-3. Patient said he just recovered back about 2 days ago. Patient was asking if it would okay to skip postpone the chemotherapy by 1 week. In addition his son came back and he would like to spend more quality time with his son 2. I talked with the patient that I completely agree, and will defer the cycle 2 [place]/Abraxane by one week. In addition I will consider reducing the dosage by 25%. Patient voiced understanding. Plan: Delay GemAbraxene C21D1 by one week Will reduce dosage by 25%
[2020-08-19 09:28] LABS: Alanine Aminotransferase 16 IU/L (<50); Albumin 3.8 g/dL (3.5-5.0); Albumin Globulin Ratio 1.2 (1.0-2.8); Alkaline Phosphatase 121 U/L (38-126); Aspartate Aminotransferase 24 IU/L (17-59); BUN Creatinine Ratio 23.4 (6-22); Bilirubin Total 0.6 mg/dL (0.2-1.3); Blood Urea Nitrogen 25 mg/dL (9-20); Calcium 9.1 mg/dL (8.4-10.2); Carbon Dioxide 27 mmol/L (22-32); Chloride 106 mmol/L (98-107); Estimated Glomerular Filt Rate > 60.0 mL/min (>60); Globulin 3.3 g/dL (1.7-4.1); Glucose 123 mg/dL (80-110); HEMOLYSIS < 15 (0-50); Sodium 140 mmol/L (137-145); Total Protein 7.1 g/dL (6.3-8.2)
[2020-08-19 09:52] LABS: Anisocytosis 2+; Basophilic Stippling 1+; Poikilocytosis 1+; Polychromasia 1+
[2020-08-19 09:53] LABS: Ovalocytes 1+
[2020-08-20 07:29] LABS: Cancer (Carbohydrate) Ag 19-9 2738 U/mL (0-35)
--- NOTE | 2020-08-26 14:02 | ONC.PN ---
PN -Subjective Interval history: ID/CC: 74 year old with recurrent metastatic pancreatic cancer HPI: Antonio Lam is a 74 year old male. 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 He first noticed abnormal umbilicus with discharge with [address] Michael Wen, his compression molding machine setter, did punch biopsy on 04/08/2018. The pathology showed metastatic adenocarcinoma. The comment indicated that represented a sister Patti briscoe. Cytokeratin 7 was positive. Cytokeratin 20, TTF-1, CDX-2 [address] chest abdomen and pelvis from 04/21/2018 showed a pancreatic tail mass 3.2 x 1.9 x 1.6 cm with no evidence of distant metastasis aside from known umbilical metastasis. Patient underwent chemotherapy with Gemzar and Abraxane completed 6 cycles in Aug 2018. He tolerated well. He said he was working during chemotherapy. The Abraxane dosage was decreased by 25% for cycle 11 and 12 infusion. He has been under CT image surveillance scan every 2 months On 08/28/2019, CT showed the mass of the tail of the pancreas increased from 1.6 x 1.0 cm to 1.7 x 1.8 cm, no other sites of disease were seen. PET scan showed uptake in the pancreatic mass. He then completed stereotactic radiation therapy at the end of September 2019. In 01/2020 CT scan showed metastasis and PET scan confirmed metastasis found in ribs, lymph nodes, intestine, groin etc. He was then started on FOLFIRINOX. After 4th cycle, he said no to more chemoterhapy. On 05/15/2020 CT scan showed umbilical and had clinic masses appeared to have decreased, the left inguinal mass appear to increase her by progressive disease within the liver was noted as well as a new large saddle embolus. He was referred to ER. He was treated with heparin x 2 days, then Xarelto [address] Vinnie Long at [facility] recommended restarting gemzar and abraxane, and germline testing. On 06/03/2020. BRCA1 and BRCA2 analysis showed no clinically significant mutation identified. He also underwent [place] Hereditary Cancer Update Test, and no clinically significant mutation identified. VUS were noted including GALNT12 c.359G>C (p.[id number]), NTHL1 c.527T>C (p.[id number]), and RNF43 c.575C>T (p.[id number]). His works in here and the decided to transfer care from [facility] to [facility]. The patient underwent CT of the chest abdomen pelvis on 06/28/2020. The scan showed new 4 mm right upper lobe nodule, interval increase in size of low attenuation hepatic foci, unchanged sclerosis within the ribs, unchanged soft tissue density within the mesenteric fat of the abdomen, and unchanged low attenuation foci within pancreas. At that time, he also observed that the Sister Patti Huff nodule had increased in size and with some yellowish secretions. Interval Events Patient was started on chemotherapy with gemcitabine and Abraxane on 07/08/2020. He presented here today for second round of chemotherapy with gemcitabine and Abraxane. The second cycle was deferred to today because of significant fatigue. Patient said that despite 1 more week of break, he is still feeling very tired. He said he is also having some dizziness if standing up too soon. He denies shortness of breath. He denies chest. Patient is complaining mild abdominal discomfort. He denies any fever or chills. Denies nausea or vomiting. - Patient Self-Reported Symptoms SR Constitution: Fatigue/Malaise SR ears, nose, mouth, throat issues: Cough - Additional ROS All systems PM: reviewed and no additional remarkable complaints except as stated Home Medications and Allergies Home Medications Medication Instructions Recorded Confirmed Type atorvastatin 20 mg PO DAILY 06/27/20 08/26/20 History dutasteride-tamsulosin 1 cap PO DAILY 06/27/20 08/26/20 History losartan-hydrochlorothiazide 1 tab DAILY 06/27/20 08/26/20 History rivaroxaban [Xarelto] 20 mg PO DAILY 06/27/20 08/26/20 History codeine-guaifenesin 10 ml PO Q4-6H PRN #250 ml 07/29/20 08/26/20 Rx Allergies Allergy/AdvReac Type Severity Reaction Status Date / Time No Known Drug Allergies Allergy Verified 11/03/19 08:48 Exam Vital signs: 08/26/20 22:56 Last Vital Signs Temp 98.6 F 08/19/20 09:20 Pulse 100 H 08/26/20 14:35 Resp 18 08/26/20 14:35 BP 120/61 08/26/20 14:35 Pulse Ox 98 08/26/20 14:35 - Constitutional positive no acute distress, positive average body habitus, positive chronically ill appearing, positive cooperative - Routine HEENT Exam Head: Present: normocephalic, atraumatic Eye: Present: EOMI, PERRL, normal accommodation. Absent: conjunctival icterus - Routine Neck Exam Present: supple. Absent: lymphadenopathy, thyromegaly - Routine Chest/Breast/Axilla Exam Axillae: Absent: lymphadenopathy - Routine Respiratory Exam Present: Clear to auscultation bilaterally. Absent: accessory muscle use, wheezes - Routine Cardiovascular Exam Present: RRR, S1, S2. Absent: murmur, gallop, rubs - Routine Abdominal Exam Present: soft. Absent: tenderness, distended Palpation/Percussion: Absent: splenomegaly Comments: Sister Patti Huff node noted, measuring about 3-4 cm. - Routine Extremities Exam Absent: edema - Routine Neurological Exam Present: alert, oriented X3, CN II-XII intact. Absent: sensory deficit, motor deficit - Routine Psychiatric Exam Present: normal affect Results - Labs Laboratory Last Values WBC 7.8 X10^3/uL (4.5-11.0) 08/19/20 09:10 RBC 3.62 X10^6/uL (4.5-5.9) L 08/19/20 09:10 Hgb 8.7 g/dL (13.5-17.5) L 08/19/20 09:10 Hct 27.5 % (41-53) L 08/19/20 09:10 MCV 76.0 fL (80-100) L 08/19/20 09:10 MCH 24.1 PG (26-34) L 08/19/20 09:10 MCHC 31.7 % (30-36) 08/19/20 09:10 RDW 21.1 % (11.6-14.8) H 08/19/20 09:10 Plt Count 258 X10^3/uL (150-400) 08/19/20 09:10 Neut % (Auto) 63.8 % (50-75) 08/19/20 09:10 Lymph % (Auto) 13.3 % (25-40) L 08/19/20 09:10 [place] % (Auto) 18.9 % (3-14) H 08/19/20 09:10 Eos % (Auto) 3.4 % (2-4) 08/19/20 09:10 Baso % (Auto) 0.6 % (0-2) 08/19/20 09:10 Neut # (Auto) 4900 /uL (9257-4589) 08/19/20 09:10 Lymph # (Auto) 1000 /uL (6837-2073) L 08/19/20 09:10 [place] # (Auto) 1500 /uL (0-900) H 08/19/20 09:10 Eos # (Auto) 300 /uL (0-450) 08/19/20 09:10 Baso # (Auto) 0 /uL (0-100) 08/19/20 09:10 RBC Morphology See below 08/19/20 09:10 Polychromasia 1+ H 08/19/20 09:10 Hypochromasia 1+ H 07/16/20 10:27 Poikilocytosis 1+ H 08/19/20 09:10 Basophilic Stippling 1+ H 08/19/20 09:10 Anisocytosis 2+ H 08/19/20 09:10 Microcytosis 2+ H 08/05/20 10:30 Ovalocytes 1+ H 08/19/20 09:10 Sodium 140 mmol/L (137-145) 08/19/20 09:10 Potassium 4.0 mmol/L (3.4-5.1) 08/19/20 09:10 Chloride 106 mmol/L (98-107) 08/19/20 09:10 Carbon Dioxide 27 mmol/L (22-32) 08/19/20 09:10 BUN 25 mg/dL (9-20) H 08/19/20 09:10 Creatinine 1.07 mg/dL (0.66-1.25) 08/19/20 09:10 Estimated GFR > 60.0 mL/min (>60) 08/19/20 09:10 BUN/Creatinine Ratio 23.4 (6-22) H 08/19/20 09:10 Glucose 123 mg/dL (80-110) H 08/19/20 09:10 Calcium 9.1 mg/dL (8.4-10.2) 08/19/20 09:10 Total Bilirubin 0.6 mg/dL (0.2-1.3) 08/19/20 09:10 AST 24 IU/L (17-59) 08/19/20 09:10 ALT 16 IU/L (<50) 08/19/20 09:10 Alkaline Phosphatase 121 U/L (38-126) 08/19/20 09:10 Total Protein 7.1 g/dL (6.3-8.2) 08/19/20 09:10 Albumin 3.8 g/dL (3.5-5.0) 08/19/20 09:10 Globulin 3.3 g/dL (1.7-4.1) 08/19/20 09:10 Albumin/Globulin Ratio 1.2 (1.0-2.8) 08/19/20 09:10 CA 19-9 Antigen 2738 U/mL (0-35) H 08/19/20 09:10 Blood Type A Positive 07/16/20 10:27 Antibody Screen Negative 07/16/20 10:27 Crossmatch See Detail 07/16/20 10:27 Assessment and Plan (1) Pancreatic malignant neoplasm Overview: 74 year old with metastatic pancreatic cancer diagnosed on 04/08/2018 after punch biopsy of a sister Patti briscoe. After diagnosis, he has received Gemzar and Abraxane completed in 08/2018. He had disease progression in 01/2020, he received FOLFIRINOX for [address] 05/15/2020 showed evidence of response and incidental findings of large saddle pulmonary embolism. He was started on heparin and then Xarelto. On 06/03/2020. BRCA1 and BRCA2 analysis showed no clinically significant mutation identified. He also underwent [place] Hereditary Cancer Update Test, and no clinically significant mutation identified. VUS were noted including GALNT12 c.359G>C (p.[id number]), NTHL1 c.527T>C (p.[id number]), and RNF43 c.575C>T (p.Avo760Vtb). Dr. Vinnie Long, his medical oncologist, at [facility] recommended restarting gemzar and abraxane. His works in here and he decided to transfer care from [facility] to [facility]. Patient was started on chemotherapy with gemcitabine and Abraxane on 07/08/2020. Assessment: Talked with the patient that the symptoms he has experienced are probably multifactorial. Patient has worsening anemia with microcytosis. In addition the tumor marker seems to be on the rise but at this moment is hard to determine if it is persistently rising or is just fluctuating. Patient has some dizziness when standing up. I talked with the patient that I would prefer to defer the chemotherapy to the coming . Before the chemotherapy, I am recommending blood transfusion 1 unit. Patient voiced understanding. Plan: Delay GemAbraxene C21D1 to with dose reduction of 25% pRBC one unit transfusion
[2020-08-26 14:09] LABS: Add Manual Diff / Slide Review NO; Basophils Absolute Auto 100 /uL (0-100); Basophils Percent Auto 0.8 % (0-2); Eosinophils Absolute Auto 200 /uL (0-450); Eosinophils Percent Auto 1.2 % (2-4); Hematocrit 26.8 % (41-53); Hemoglobin 8.2 g/dL (13.5-17.5); Lymphocytes Absolute Auto 1000 /uL (1100-4500); Lymphocytes Percent Auto 6.3 % (25-40); Mean Corpuscular HGB Conc 30.5 % (30-36); Mean Corpuscular Hemoglobin 22.6 PG (26-34); Mean Corpuscular Volume 74.1 fL (80-100); Monocytes Absolute Auto 1600 /uL (0-900); Monocytes Percent Auto 9.8 % (3-14); Neutrophils Absolute Auto 13300 /uL (1500-7000); Neutrophils Percent Auto 81.9 % (50-75); Platelet Count 290 X10^3/uL (150-400); Red Blood Cell Count 3.62 X10^6/uL (4.5-5.9); Red Cell Distribution Width 21.1 % (11.6-14.8); White Blood Cell Count 16.3 X10^3/uL (4.5-11.0)
[2020-08-26 14:28] LABS: Anisocytosis 2+; Poikilocytosis 2+
[2020-08-26 14:35] VITALS: BP 120/61; PULSE 100; RESP 18; O2SAT 98
[2020-08-26 15:46] LABS: Alanine Aminotransferase 21 IU/L (<50); Albumin 3.6 g/dL (3.5-5.0); Albumin Globulin Ratio 1.2 (1.0-2.8); Alkaline Phosphatase 137 U/L (38-126); Aspartate Aminotransferase 34 IU/L (17-59); BUN Creatinine Ratio 31.1 (6-22); Blood Urea Nitrogen 32 mg/dL (9-20); Calcium 8.7 mg/dL (8.4-10.2); Carbon Dioxide 25 mmol/L (22-32); Chloride 98 mmol/L (98-107); Estimated Glomerular Filt Rate > 60.0 mL/min (>60); Glucose 148 mg/dL (80-110); HEMOLYSIS < 15 (0-50); Potassium 4.2 mmol/L (3.4-5.1); Sodium 133 mmol/L (137-145); Total Protein 6.6 g/dL (6.3-8.2)
[2020-08-27 04:16] LABS: Cancer (Carbohydrate) Ag 19-9 3763 U/mL (0-35)
[2020-08-27 11:33] VITALS: BP 110/60; PULSE 89; RESP 18; TEMP 36.9
[2020-08-27 11:49] VITALS: BP 124/54; PULSE 83; RESP 18; TEMP 37.2
[2020-08-27 13:46] VITALS: BP 116/60; PULSE 79; RESP 18; TEMP 36.6
--- NOTE | 2020-08-27 14:29 | PC.NURSE ---
WBC/NEUTROPHILS INCREASED ON LAB RESULTS OF 08/26, PATIENT IS NOT EXPERIENCING ANY SIGNS OF INFECTION, HE WAS TOLD TO MONITOR TEMP DAILY AND TO REPORT ANY FEVER OVER 100.4, ANY PAIN, NEW COUGH OR PAIN.BURNING WITH URINATION. VSS, LUNGS CLEAR ON AUSCULTATION.
[2020-08-28 08:56] LABS: Add Manual Diff / Slide Review NO; Basophils Absolute Auto 100 /uL (0-100); Eosinophils Absolute Auto 400 /uL (0-450); Eosinophils Percent Auto 3.6 % (2-4); Hematocrit 30.6 % (41-53); Hemoglobin 9.6 g/dL (13.5-17.5); Lymphocytes Absolute Auto 1100 /uL (1100-4500); Lymphocytes Percent Auto 10.5 % (25-40); Mean Corpuscular HGB Conc 31.4 % (30-36); Mean Corpuscular Hemoglobin 23.6 PG (26-34); Mean Corpuscular Volume 75.2 fL (80-100); Monocytes Absolute Auto 1000 /uL (0-900); Monocytes Percent Auto 9.7 % (3-14); Neutrophils Absolute Auto 8100 /uL (1500-7000); Neutrophils Percent Auto 75.2 % (50-75); Platelet Count 255 X10^3/uL (150-400); Red Blood Cell Count 4.06 X10^6/uL (4.5-5.9); Red Cell Distribution Width 20.7 % (11.6-14.8); White Blood Cell Count 10.8 X10^3/uL (4.5-11.0)
[2020-08-28 09:00] VITALS: BP 118/63; PULSE 84; RESP 16; TEMP 36.5; O2SAT 99
[2020-08-28 09:08] LABS: Alanine Aminotransferase 26 IU/L (<50); Albumin 3.8 g/dL (3.5-5.0); Alkaline Phosphatase 146 U/L (38-126); Aspartate Aminotransferase 30 IU/L (17-59); BUN Creatinine Ratio 25.7 (6-22); Bilirubin Total 0.9 mg/dL (0.2-1.3); Blood Urea Nitrogen 26 mg/dL (9-20); Carbon Dioxide 27 mmol/L (22-32); Chloride 101 mmol/L (98-107); Estimated Glomerular Filt Rate > 60.0 mL/min (>60); Globulin 3.7 g/dL (1.7-4.1); Glucose 170 mg/dL (80-110); HEMOLYSIS < 15 (0-50); Potassium 3.8 mmol/L (3.4-5.1); Sodium 136 mmol/L (137-145); Total Protein 7.5 g/dL (6.3-8.2)
[2020-08-28 09:15] LABS: Anisocytosis 2+; Hypochromasia 1+; Poikilocytosis 1+
[2020-08-29 07:04] LABS: Cancer (Carbohydrate) Ag 19-9 5240 U/mL (0-35)
[2020-09-05 09:48] LABS: Add Manual Diff / Slide Review NO; Basophils Absolute Auto 100 /uL (0-100); Basophils Percent Auto 0.7 % (0-2); Eosinophils Absolute Auto 300 /uL (0-450); Eosinophils Percent Auto 2.3 % (2-4); Hemoglobin 9.2 g/dL (13.5-17.5); Lymphocytes Absolute Auto 1500 /uL (1100-4500); Lymphocytes Percent Auto 11.4 % (25-40); Mean Corpuscular HGB Conc 30.8 % (30-36); Mean Corpuscular Hemoglobin 22.9 PG (26-34); Mean Corpuscular Volume 74.4 fL (80-100); Monocytes Absolute Auto 1300 /uL (0-900); Monocytes Percent Auto 9.6 % (3-14); Neutrophils Absolute Auto 9900 /uL (1500-7000); Platelet Count 249 X10^3/uL (150-400); Red Blood Cell Count 4.03 X10^6/uL (4.5-5.9); Red Cell Distribution Width 21.1 % (11.6-14.8)
[2020-09-05 10:09] VITALS: BP 123/70; PULSE 90; RESP 20; TEMP 36.7; O2SAT 99
[2020-09-05 10:11] LABS: Alanine Aminotransferase 16 IU/L (<50); Albumin 3.8 g/dL (3.5-5.0); Albumin Globulin Ratio 1.1 (1.0-2.8); Alkaline Phosphatase 123 U/L (38-126); Aspartate Aminotransferase 26 IU/L (17-59); BUN Creatinine Ratio 30.3 (6-22); Bilirubin Total 0.6 mg/dL (0.2-1.3); Blood Urea Nitrogen 27 mg/dL (9-20); Calcium 9.4 mg/dL (8.4-10.2); Carbon Dioxide 31 mmol/L (22-32); Chloride 104 mmol/L (98-107); Estimated Glomerular Filt Rate > 60.0 mL/min (>60); Globulin 3.5 g/dL (1.7-4.1); Glucose 126 mg/dL (80-110); HEMOLYSIS < 15 (0-50); Potassium 3.8 mmol/L (3.4-5.1); Sodium 139 mmol/L (137-145); Total Protein 7.3 g/dL (6.3-8.2)
[2020-09-05 10:21] LABS: Anisocytosis 2+; Hypochromasia 2+
--- NOTE | 2020-09-05 11:09 | ONC.SCHED ---
Cisplatin [id number] and Gemcitabine [id number] codecorrect ok with DX: C25.9.
--- NOTE | 2020-09-05 14:17 | ONC.SCHED ---
Left message for patient with 09/09/2020 appointment time.
[2020-09-09 08:41] LABS: Add Manual Diff / Slide Review NO; Basophils Absolute Auto 100 /uL (0-100); Basophils Percent Auto 0.6 % (0-2); Eosinophils Absolute Auto 200 /uL (0-450); Eosinophils Percent Auto 1.5 % (2-4); Hematocrit 29.8 % (41-53); Hemoglobin 9.2 g/dL (13.5-17.5); Lymphocytes Absolute Auto 900 /uL (1100-4500); Lymphocytes Percent Auto 6.3 % (25-40); Mean Corpuscular HGB Conc 30.8 % (30-36); Mean Corpuscular Hemoglobin 22.6 PG (26-34); Mean Corpuscular Volume 73.5 fL (80-100); Monocytes Absolute Auto 1000 /uL (0-900); Monocytes Percent Auto 7.7 % (3-14); Neutrophils Absolute Auto 11400 /uL (1500-7000); Neutrophils Percent Auto 83.9 % (50-75); Platelet Count 243 X10^3/uL (150-400); Red Blood Cell Count 4.06 X10^6/uL (4.5-5.9); Red Cell Distribution Width 21.4 % (11.6-14.8); White Blood Cell Count 13.5 X10^3/uL (4.5-11.0)
[2020-09-09 08:53] LABS: Alanine Aminotransferase 20 IU/L (<50); Albumin 3.9 g/dL (3.5-5.0); Albumin Globulin Ratio 1.1 (1.0-2.8); Alkaline Phosphatase 133 U/L (38-126); Aspartate Aminotransferase 27 IU/L (17-59); BUN Creatinine Ratio 22.6 (6-22); Bilirubin Total 0.9 mg/dL (0.2-1.3); Blood Urea Nitrogen 26 mg/dL (9-20); Calcium 9.3 mg/dL (8.4-10.2); Carbon Dioxide 28 mmol/L (22-32); Chloride 100 mmol/L (98-107); Estimated Glomerular Filt Rate > 60.0 mL/min (>60); Globulin 3.6 g/dL (1.7-4.1); Glucose 145 mg/dL (80-110); HEMOLYSIS < 15 (0-50); Magnesium 1.6 mg/dL (1.6-2.3); Potassium 3.5 mmol/L (3.4-5.1); Sodium 135 mmol/L (137-145); Total Protein 7.5 g/dL (6.3-8.2)
[2020-09-09 08:59] LABS: Anisocytosis 1+; Ovalocytes 1+; Poikilocytosis 1+
[2020-09-09 09:07] VITALS: BP 90/60; PULSE 96; RESP 16; TEMP 37.2; O2SAT 99
--- NOTE | 2020-09-09 09:14 | P.PNONC_ITS ---
PN -Subjective Interval history: ID/CC: 74 year old with recurrent metastatic pancreatic cancer HPI: Antonio Lam is a 74 year old male. 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 He first noticed abnormal umbilicus with discharge w ith [address] Michael Wen, his chief minister, did punch biopsy on 04/08/2018. The pathology showed metastatic adenocarcinoma. The comment indicated that represented a sister Patti briscoe. Cytokeratin 7 was positive. Cytokeratin 20, TTF-1, CDX-[address] chest abdomen and pelvis from 04/21/2018 showed a pancreatic tail mass 3.2 x 1.9 x 1.6 cm with no evidence of distant metastasis aside from known umbilical metastasis. Patient underwent chemotherapy with Gemzar and Abraxane completed 6 cycles in Aug 2018. He tolerated well. He said he was working during chemotherapy. The Abraxane dosage was decreased by 25% for cycle 11 and 12 infusion. He has been under CT image surveillance scan every 2 months On 08/28/2019, CT showed the mass of the tail of the pancreas increased from 1.6 x 1.0 cm to 1.7 x 1.8 cm, no other sites of disease were seen. PET scan showed uptake in the pancreatic mass. He then completed stereotactic radiation therapy at the end of September 2019. In 01/2020 CT scan showed metastasis and PET scan confirmed metastasis found in ribs, lymph nodes, intestine, groin etc. He was then started on FOLFIRINOX. After 4th cycle, he said no to more chemoterhapy. On 05/15/2020 CT scan showed umbilical and had clinic masses appeared to have decreased, the left inguinal mass appear to increase her by progressive disease within the liver was noted as well as a new large saddle embolus. He was referred to ER. He was treated with heparin x 2 days, then Xarelto [address] Vinnie Long at [facility] recommended restarting gemzar and abraxane, and germline testing. On 06/03/2020. BRCA1 and BRCA2 analysis showed no clinically significant mutation identified. He also underwent [facility] Hereditary Cancer Update Test, and no clinically significant mutation identified. VUS were noted including GALNT12 c.359G>C (p.[id number]), NTHL1 c.527T>C (p.[id number]), and RNF43 c.575C>T (p.[id number]). 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 The patient underwent CT of the chest abdomen pelvis on 06/28/2020. The scan showed new 4 mm right upper lobe nodule, interval increase in size of low attenuation hepatic foci, unchanged sclerosis within the ribs, unchanged soft tissue density within the mesenteric fat of the abdomen, and unchanged low attenuation foci within pancreas. At that time, he also observed that the Sister aPtti Huff nodule had increased in size and with some yellowish secretions. Interval Events Patient was started on chemotherapy with gemcitabine and Abraxane on 07/08/2020. Patient has experienced significant fatigue (grade 2-3) with this regimen. In addition, the lab results indicated rapid rising CA 19-9 levels suggests that his tumor is not responding to the regimen. Clinically patient has noticed that the sister Patti Huff node is getting bigger and irritative. He is having some abdominal achiness. He is also feeling tired. Therefore during his previous visit, we decided to change chemotherapy to gemcitabine and cisplatin. He presents here today for the first cycle. - Patient Self-Reported Symptoms SR Constitution: Fatigue/Malaise SR ears, nose, mouth, throat issues: Cough SR Gastrointestinal issues: Poor or no appetite - Additional ROS All systems PM: reviewed and no additional remarkable complaints except as stated Home Medications and Allergies Home Medications Medication Instructions Recorded Confirmed Type atorvastatin 20 mg PO DAILY 06/27/20 08/26/20 History dutasteride-tamsulosin 1 cap PO DAILY 06/27/20 08/26/20 History losartan-hydrochlorothiazide 1 tab DAILY 06/27/20 08/26/20 History rivaroxaban [Xarelto] 20 mg PO DAILY 06/27/20 08/26/20 History codeine-guaifenesin 10 ml PO Q4-6H PRN #250 ml 07/29/20 08/26/20 Rx Allergies Allergy/AdvReac Type Severity Reaction Status Date / Time No Known Drug Allergies Allergy Verified 11/03/19 08:48 Exam Vital signs: Vital Signs Temp Pulse Resp BP Pulse Ox 09/09/20 09:07 99 F 96 H 16 90/60 99 Intake and Output 09/08/20 09/09/20 09/09/20 23:59 07:59 15:59 Other: Weight 79.8 kg Patient Weight 09/09/20 23:59 Weight 79.8 kg - Constitutional positive no acute distress, positive thin, positive cooperative - Routine HEENT Exam Head: Present: normocephalic, atraumatic Eye: Present: EOMI, PERRL, normal accommodation. Absent: conjunctival icterus - Routine Respiratory Exam Absent: accessory muscle use - Routine Abdominal Exam Present: soft (Enlarging sister Patti Huff node noticed, now measurig 1.5 cm. ) - Routine Extremities Exam Absent: edema - Routine Neurological Exam Present: alert, oriented X3, CN II-XII intact. Absent: sensory deficit, motor deficit - Routine Psychiatric Exam Present: normal affect Results - Labs Laboratory Last Values WBC 13.5 X10^3/uL (4.5-11.0) H 09/09/20 08:30 RBC 4.06 X10^6/uL (4.5-5.9) L 09/09/20 08:30 Hgb 9.2 g/dL (13.5-17.5) L 09/09/20 08:30 Hct 29.8 % (41-53) L 09/09/20 08:30 MCV 73.5 fL (80-100) L 09/09/20 08:30 MCH 22.6 PG (26-34) L 09/09/20 08:30 MCHC 30.8 % (30-36) 09/09/20 08:30 RDW 21.4 % (11.6-14.8) H 09/09/20 08:30 Plt Count 243 X10^3/uL (150-400) 09/09/20 08:30 Neut % (Auto) 83.9 % (50-75) H 09/09/20 08:30 Lymph % (Auto) 6.3 % (25-40) L 09/09/20 08:30 [place] % (Auto) 7.7 % (3-14) 09/09/20 08:30 Eos % (Auto) 1.5 % (2-4) L 09/09/20 08:30 Baso % (Auto) 0.6 % (0-2) 09/09/20 08:30 Neut # (Auto) 24109 /uL (7176-4495) H 09/09/20 08:30 Lymph # (Auto) 900 /uL (7798-7048) L 09/09/20 08:30 [place] # (Auto) 1000 /uL (0-900) H 09/09/20 08:30 Eos # (Auto) 200 /uL (0-450) 09/09/20 08:30 Baso # (Auto) 100 /uL (0-100) 09/09/20 08:30 RBC Morphology Not Reportable 09/09/20 08:30 Polychromasia 1+ H 08/19/20 09:10 Hypochromasia 2+ H 09/05/20 09:35 Poikilocytosis 1+ H 09/09/20 08:30 Basophilic Stippling 1+ H 08/19/20 09:10 Anisocytosis 1+ H 09/09/20 08:30 Microcytosis 2+ H 08/05/20 10:30 Ovalocytes 1+ H 09/09/20 08:30 Sodium 135 mmol/L (137-145) L 09/09/20 08:30 Potassium 3.5 mmol/L (3.4-5.1) 09/09/20 08:30 Chloride 100 mmol/L (98-107) 09/09/20 08:30 Carbon Dioxide 28 mmol/L (22-32) 09/09/20 08:30 BUN 26 mg/dL (9-20) H 09/09/20 08:30 Creatinine 1.15 mg/dL (0.66-1.25) 09/09/20 08:30 Estimated GFR > 60.0 mL/min (>60) 09/09/20 08:30 BUN/Creatinine Ratio 22.6 (6-22) H 09/09/20 08:30 Glucose 145 mg/dL (80-110) H 09/09/20 08:30 Calcium 9.3 mg/dL (8.4-10.2) 09/09/20 08:30 Magnesium 1.6 mg/dL (1.6-2.3) 09/09/20 08:30 Total Bilirubin 0.9 mg/dL (0.2-1.3) 09/09/20 08:30 AST 27 IU/L (17-59) 09/09/20 08:30 ALT 20 IU/L (<50) 09/09/20 08:30 Alkaline Phosphatase 133 U/L (38-126) H 09/09/20 08:30 Total Protein 7.5 g/dL (6.3-8.2) 09/09/20 08:30 Albumin 3.9 g/dL (3.5-5.0) 09/09/20 08:30 Globulin 3.6 g/dL (1.7-4.1) 09/09/20 08:30 Albumin/Globulin Ratio 1.1 (1.0-2.8) 09/09/20 08:30 CA 19-9 Antigen 5240 U/mL (0-35) H 08/28/20 08:45 Blood Type A Positive 08/26/20 13:45 Antibody Screen Negative 08/26/20 13:45 Crossmatch See Detail 08/26/20 13:45 Assessment and Plan (1) Pancreatic malignant neoplasm Overview: 74 year old with metastatic pancreatic cancer diagnosed on 04/08/2018 after punch biopsy of a sister Patti briscoe. After diagnosis, he has received Gemzar and Abraxane completed in 08/2018. He had disease progression in 01/2020, he received FOLFIRINOX for [address] 05/15/2020 showed evidence of response and incidental findings of large saddle pulmonary embolism. He was started on heparin and then Xarelto. On 06/03/2020. BRCA1 and BRCA2 analysis showed no clinically significant mutation identified. He also underwent [facility] Hereditary Cancer Update Test, and no clinically significant mutation identified. VUS were noted including GALNT12 c.359G>C (p.[id number]), NTHL1 c.527T>C (p.[id number]), and RNF43 c.575C>T (p.[id number]). Dr. Vinnie Long, his medical oncologist, at [facility] recommended restarting gemzar and abraxane. His works in here and he decided to transfer care from [place] [facility] to [facility]. Patient was started on chemotherapy with gemcitabine and Abraxane on 07/08/2020. Assessment: Due to disease progression, we decided to stop gemcitabine and Abraxane and switch to gemcitabine and cisplatin. Today it will be the first cycle of the regimen. Patient has a lot of questions. I talked with the patient that this regimen has been shown in some patients to have excellent response. However it is difficult to predict who is going to respond and who is not going to respond. During the treatment we will monitor the tumor markers closely. As far as the side effects and complications are concerned, I talked with the patient that cisplatin is known to cause hearing changes, peripheral neuropathy, as well as kidney damage. I talked with him that it is utmost important during the treatment that patient hydrate himself well. Patient voiced understanding. I reviewed the labs from today including CBC and CMP. They are unremarkable and appropriate. Will proceed with scheduled first round of gemcitabine and cisplatin. Plan: Ok to proceed to cycle 1# Gemcitabine/Cisplatin RTC on C2#, labs per protocol
--- NOTE | 2020-09-09 10:14 | PC.NURSE ---
Dr. House notified of BP, WBC and neutrophils. ok for treatment
[2020-09-09] MEDS: SODIUM CHLORIDE 0.9% 1,000 ML 500 ML IV (10:17)
[2020-09-09] MEDS: LORazepam 0.5 MG TABLET PO (10:48)
[2020-09-09] MEDS: ONDANSETRON 16 MG in SODIUM CHLORIDE 0.9% 50 ML 232 ML IV (11:07)
[2020-09-09] MEDS: FOSAPREPITANT 150 MG in SODIUM CHLORIDE 0.9% 150 ML 300 ML IV (11:33)
[2020-09-09] MEDS: GEMCITABINE HCL IV (12:23)
[2020-09-09] MEDS: SODIUM CHLORIDE 0.9% IV (12:23)
--- NOTE | 2020-09-09 13:17 | PHA.NOTE ---
Chemotherapy Patient is here for his chemotherapy: Gemcitabine (750mg/m2) 1495mg and Cisplatin (25mg/m2) 50mg. Patient's SCr is slightly elevated = 1.15 mg/dL, CrCl ~ 58 ml/min. Per marcela Kern to proceed with chemotherapy, no dose adjustment since Cisplatin is low dose.
[2020-09-09] MEDS: MANNITOL IV (13:23)
[2020-09-09] MEDS: CISPLATIN IV (13:23)
[2020-09-09] MEDS: [UNRECOGNIZED DRUG - OTHER] IV (13:23)
[2020-09-09] MEDS: POTASSIUM CHLORIDE IV (13:23)
[2020-09-10 08:58] LABS: Cancer (Carbohydrate) Ag 19-9 8832 U/mL (0-35)
[2020-09-16 13:33] LABS: Add Manual Diff / Slide Review NO; Basophils Absolute Auto 0 /uL (0-100); Basophils Percent Auto 0.6 % (0-2); Eosinophils Absolute Auto 500 /uL (0-450); Eosinophils Percent Auto 6.4 % (2-4); Hemoglobin 8.3 g/dL (13.5-17.5); Lymphocytes Absolute Auto 1400 /uL (1100-4500); Lymphocytes Percent Auto 18.8 % (25-40); Mean Corpuscular Hemoglobin 22.9 PG (26-34); Mean Corpuscular Volume 71.6 fL (80-100); Monocytes Absolute Auto 700 /uL (0-900); Monocytes Percent Auto 10.1 % (3-14); Neutrophils Absolute Auto 4600 /uL (1500-7000); Neutrophils Percent Auto 64.1 % (50-75); Platelet Count 122 X10^3/uL (150-400); Red Blood Cell Count 3.63 X10^6/uL (4.5-5.9); Red Cell Distribution Width 21.5 % (11.6-14.8); White Blood Cell Count 7.2 X10^3/uL (4.5-11.0)
[2020-09-16 13:49] LABS: Alanine Aminotransferase 28 IU/L (<50); Albumin 3.7 g/dL (3.5-5.0); Albumin Globulin Ratio 1.1 (1.0-2.8); Alkaline Phosphatase 154 U/L (38-126); Aspartate Aminotransferase 26 IU/L (17-59); BUN Creatinine Ratio 32.2 (6-22); Bilirubin Total 0.4 mg/dL (0.2-1.3); Blood Urea Nitrogen 29 mg/dL (9-20); Calcium 8.8 mg/dL (8.4-10.2); Carbon Dioxide 28 mmol/L (22-32); Chloride 99 mmol/L (98-107); Estimated Glomerular Filt Rate > 60.0 mL/min (>60); Globulin 3.3 g/dL (1.7-4.1); Glucose 132 mg/dL (80-110); HEMOLYSIS < 15 (0-50); Magnesium 1.7 mg/dL (1.6-2.3); Potassium 3.9 mmol/L (3.4-5.1); Sodium 134 mmol/L (137-145)
[2020-09-16 14:22] LABS: Anisocytosis 2+; Microcytosis 2+
--- NOTE | 2020-09-16 14:25 | PC.NURSE ---
Addendum entered by Deborah Manrique R.N. 09/16/20 14:26: umbilical wound assessed; growth there, dry. no weeping noted Original Note: labs: Dr. House notified of lab results. results given to pt
[2020-09-18 07:00] LABS: Cancer (Carbohydrate) Ag 19-9 9549 U/mL (0-35)
--- NOTE | 2020-09-23 08:18 | ONC.PN ---
PN -Subjective Interval history: ID/CC: 74 year old with recurrent metastatic pancreatic cancer HPI: Antonio Lam is a 74 year old male. 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 He first noticed abnormal umbilicus with discharge with [address] Michael Wen, his blood bank laboratory professional, did punch biopsy on 04/08/2018. The pathology showed metastatic adenocarcinoma. The comment indicated that represented a sister Patti briscoe. Cytokeratin 7 was positive. Cytokeratin 20, TTF-1, CDX-2 and [address] chest abdomen and pelvis from 04/21/2018 showed a pancreatic tail mass 3.2 x 1.9 x 1.6 cm with no evidence of distant metastasis aside from known umbilical metastasis. Patient underwent chemotherapy with Gemzar and Abraxane completed 6 cycles in Aug 2018. He tolerated well. He said he was working during chemotherapy. The Abraxane dosage was decreased by 25% for cycle 11 and 12 infusion. He has been under CT image surveillance scan every 2 months On 08/28/2019, CT showed the mass of the tail of the pancreas increased from 1.6 x 1.0 cm to 1.7 x 1.8 cm, and no other sites of disease were seen. PET scan showed uptake in the pancreatic mass. He then completed stereotactic radiation therapy at the end of September 2019. In 01/2020 CT scan showed metastasis and PET scan confirmed metastasis found in ribs, lymph nodes, intestine, groin etc. He was then started on FOLFIRINOX. After 4th cycle, he said no to more chemotherapy. On 05/15/2020 CT scan showed umbilical and pancreatic masses appeared to have decreased, and the left inguinal mass appeared to decrease, but noted progressive disease within the liver and new large saddle embolus. He was referred to ER. He was treated with heparin x 2 days, then Xarelto [address] Vinnie Long at [facility] recommended restarting gemzar and abraxane, and germline testing. On 06/03/2020. BRCA1 and BRCA2 analysis showed no clinically significant mutation identified. He also underwent [facility] Hereditary Cancer Update Test, and no clinically significant mutation identified. VUS were noted including GALNT12 c.359G>C (p.[id number]), NTHL1 c.527T>C (p.[id number]), and RNF43 c.575C>T (p.Whh284Cls). 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 The patient underwent CT of the chest abdomen pelvis on 06/28/2020. The scan showed new 4 mm right lung upper lobe nodule, interval increase in size of low attenuation hepatic foci, unchanged sclerosis within the ribs, unchanged soft tissue density within the mesenteric fat of the abdomen, and unchanged low attenuation foci within pancreas. At that time, he also observed that the Sister Patti Huff nodule had increased in size and with some yellowish secretions. Patient was started on chemotherapy with gemcitabine and Abraxane on 07/08/2020. Patient experienced significant fatigue (grade 2-3) with this regimen. In addition, the lab results indicated rapid rising CA 19-9 levels suggesting that his tumor is not responding to the regimen. Clinically patient has noticed that the sister Patti Huff node was getting bigger and irritative. Therefore during his visit on 09/09/2020, we decided to change chemotherapy to gemcitabine and cisplatin. Interval Events He presents here today for the 2nd cycle of gemcitabine and cisplatin. Clinically, patient said that he is feeling fatigue. However he said he is able to walk around almost a mile, but it takes a long time to complete the 1 mile walk. Patient said he does not have shortness of breath, and does feel exhausted somewhat. He continues to complain irritative cough, especially when lying on the left side, but not on the right side. He denies any fever. He noticed that the sister Patti Huff nodue is growing with some stinging sensation. But the abdominal pain around the Sister Patti Huff node seems to be resolving and he feels better. He reports no hearing changes. He reports no balancing problems while walking. - Patient Self-Reported Symptoms SR Constitution: Fatigue/Malaise SR ears, nose, mouth, throat issues: Cough SR Gastrointestinal issues: Poor or no appetite - Additional ROS All systems PM: reviewed and no additional remarkable complaints except as stated Home Medications and Allergies Home Medications Medication Instructions Recorded Confirmed Type atorvastatin 20 mg PO DAILY 06/27/20 09/23/20 History dutasteride-tamsulosin 1 cap PO DAILY 06/27/20 09/23/20 History losartan-hydrochlorothiazide 1 tab DAILY 06/27/20 09/23/20 History rivaroxaban [Xarelto] 20 mg PO DAILY 06/27/20 09/23/20 History codeine-guaifenesin 10 ml PO Q4-6H PRN #250 ml 09/09/20 09/23/20 Rx Allergies Allergy/AdvReac Type Severity Reaction Status Date / Time No Known Drug Allergies Allergy Verified 11/03/19 08:48 Exam Vital signs: 09/23/20 09:00 Last Vital Signs Temp 98.7 F 09/23/20 08:35 Pulse 104 H 09/23/20 08:35 Resp 16 09/23/20 08:35 BP 136/71 09/23/20 08:35 Pulse Ox 100 09/23/20 08:35 - Constitutional positive no acute distress, positive average body habitus, positive chronically ill appearing, positive cooperative - Routine HEENT Exam Head: Present: normocephalic, atraumatic Eye: Present: EOMI, PERRL, normal accommodation. Absent: conjunctival icterus - Routine Neck Exam Present: supple - Routine Respiratory Exam Present: Clear to auscultation bilaterally. Absent: wheezes - Routine Cardiovascular Exam Present: RRR, S1, S2. Absent: murmur, gallop, rubs - Routine Abdominal Exam Present: soft, mass (umbilical nodule slightly more prominent (sister Patti Huff nodule)> ). Absent: tenderness Comments: Sister Patti Huff node noted. Slightly bigger than last time. - Routine Extremities Exam Absent: edema - Routine Neurological Exam Present: alert, oriented X3, CN II-XII intact. Absent: sensory deficit, motor deficit - Routine Psychiatric Exam Present: normal affect, normal thought process, cooperative, good insight Results - Labs Laboratory Last Values WBC 9.1 X10^3/uL (4.5-11.0) 09/23/20 09:15 RBC 3.90 X10^6/uL (4.5-5.9) L 09/23/20 09:15 Hgb 8.9 g/dL (13.5-17.5) L 09/23/20 09:15 Hct 28.4 % (41-53) L 09/23/20 09:15 MCV 72.7 fL (80-100) L 09/23/20 09:15 MCH 22.9 PG (26-34) L 09/23/20 09:15 MCHC 31.5 % (30-36) 09/23/20 09:15 RDW 21.6 % (11.6-14.8) H 09/23/20 09:15 Plt Count 255 X10^3/uL (150-400) 09/23/20 09:15 Neut % (Auto) 76.9 % (50-75) H 09/23/20 09:15 Lymph % (Auto) 8.9 % (25-40) L 09/23/20 09:15 [place] % (Auto) 9.7 % (3-14) 09/23/20 09:15 Eos % (Auto) 3.9 % (2-4) 09/23/20 09:15 Baso % (Auto) 0.6 % (0-2) 09/23/20 09:15 Neut # (Auto) 7000 /uL (9680-1556) 09/23/20 09:15 Lymph # (Auto) 800 /uL (5215-8338) L 09/23/20 09:15 [place] # (Auto) 900 /uL (0-900) 09/23/20 09:15 Eos # (Auto) 400 /uL (0-450) 09/23/20 09:15 Baso # (Auto) 100 /uL (0-100) 09/23/20 09:15 RBC Morphology See below 09/23/20 09:15 Polychromasia 1+ H 08/19/20 09:10 Hypochromasia 1+ H 09/23/20 09:15 Poikilocytosis 1+ H 09/23/20 09:15 Basophilic Stippling 1+ H 08/19/20 09:10 Anisocytosis 2+ H 09/23/20 09:15 Microcytosis 2+ H 09/23/20 09:15 Ovalocytes 1+ H 09/09/20 08:30 Sodium 137 mmol/L (137-145) 09/23/20 09:15 Potassium 4.1 mmol/L (3.4-5.1) 09/23/20 09:15 Chloride 100 mmol/L (98-107) 09/23/20 09:15 Carbon Dioxide 30 mmol/L (22-32) 09/23/20 09:15 BUN 26 mg/dL (9-20) H 09/23/20 09:15 Creatinine 0.95 mg/dL (0.66-1.25) 09/23/20 09:15 Estimated GFR > 60.0 mL/min (>60) 09/23/20 09:15 BUN/Creatinine Ratio 27.4 (6-22) H 09/23/20 09:15 Glucose 127 mg/dL (80-110) H 09/23/20 09:15 Calcium 9.2 mg/dL (8.4-10.2) 09/23/20 09:15 Magnesium 1.5 mg/dL (1.6-2.3) L 09/23/20 09:15 Total Bilirubin 0.6 mg/dL (0.2-1.3) 09/23/20 09:15 AST 23 IU/L (17-59) 09/23/20 09:15 ALT 19 IU/L (<50) 09/23/20 09:15 Alkaline Phosphatase 166 U/L (38-126) H 09/23/20 09:15 Total Protein 7.2 g/dL (6.3-8.2) 09/23/20 09:15 Albumin 3.9 g/dL (3.5-5.0) 09/23/20 09:15 Globulin 3.3 g/dL (1.7-4.1) 09/23/20 09:15 Albumin/Globulin Ratio 1.2 (1.0-2.8) 09/23/20 09:15 CA 19-9 Antigen Cancelled 09/17/20 15:34 Blood Type A Positive 08/26/20 13:45 Antibody Screen Negative 08/26/20 13:45 Crossmatch See Detail 08/26/20 13:45 Assessment and Plan (1) Pancreatic malignant neoplasm Overview: 74 year old male with metastatic pancreatic cancer diagnosed on 04/08/2018 after punch biopsy of a sister Patti briscoe. After diagnosis, he has received Gemzar and Abraxane completed in 08/2018. He had disease progression in 01/2020, he received FOLFIRINOX for [address] 05/15/2020 showed evidence of response and incidental findings of large saddle pulmonary embolism. He was started on heparin and then Xarelto. On 06/03/2020. BRCA1 and BRCA2 analysis showed no clinically significant mutation identified. He also underwent [facility] Hereditary Cancer Update Test, and no clinically significant mutation identified. VUS were noted including GALNT12 c.359G>C (p.[id number]), NTHL1 c.527T>C (p.[id number]), and RNF43 c.575C>T (p.[id number]). Dr. Vinnie Long, his medical oncologist, at [facility] recommended restarting gemzar and abraxane. His works in here and he decided to transfer care from [facility] to [facility]. Patient was started on chemotherapy with gemcitabine and Abraxane on 07/08/2020. Assessment: Today, clinically patient seems to be slightly better than before. However patient is worried about the rising CA 19-9 levels. He has planned to travel down to [place] from October 05 until November 03. He also said that the chemotherapy is associated with significant weakness. I reviewed the laboratory test from last week with the patient. Overall the tumor marker CA 19-9 continues to rise but seems to be flattening out a little bit. Clinically he is slightly better which I interpret as probably is responding to the treatment. I talked with him that it is way too soon to tell whether the current regimen with gemcitabine/cisplatin is helpful or not. Given that he is relatively able to tolerate and the quality of time has not been impacted dramatically, I talked with him that I would recommend that we continue the treatment. He said that the chemotherapy has been rough. I recommended that we obtain blood samples ot evaluate fisrt and I will have the patient come back on (09/26/2020) for the treatment. Plan: Labs only today, CBC, CMP, CA19-9 RTC on for cycle 2# Gemcitabine/Cisplatin Patient will follow up with Dr. Long at [place] in Sep 2020. Follow up with me when he comes back from [place] in Oct 2020.
[2020-09-23 08:35] VITALS: BP 136/71; PULSE 104; RESP 16; TEMP 37.1; O2SAT 100
[2020-09-23 09:28] LABS: Add Manual Diff / Slide Review NO; Basophils Absolute Auto 100 /uL (0-100); Basophils Percent Auto 0.6 % (0-2); Eosinophils Absolute Auto 400 /uL (0-450); Eosinophils Percent Auto 3.9 % (2-4); Hematocrit 28.4 % (41-53); Hemoglobin 8.9 g/dL (13.5-17.5); Lymphocytes Absolute Auto 800 /uL (1100-4500); Lymphocytes Percent Auto 8.9 % (25-40); Mean Corpuscular HGB Conc 31.5 % (30-36); Mean Corpuscular Hemoglobin 22.9 PG (26-34); Mean Corpuscular Volume 72.7 fL (80-100); Monocytes Absolute Auto 900 /uL (0-900); Monocytes Percent Auto 9.7 % (3-14); Neutrophils Absolute Auto 7000 /uL (1500-7000); Neutrophils Percent Auto 76.9 % (50-75); Platelet Count 255 X10^3/uL (150-400); Red Cell Distribution Width 21.6 % (11.6-14.8); White Blood Cell Count 9.1 X10^3/uL (4.5-11.0)
[2020-09-23 09:44] LABS: Alanine Aminotransferase 19 IU/L (<50); Albumin 3.9 g/dL (3.5-5.0); Albumin Globulin Ratio 1.2 (1.0-2.8); Alkaline Phosphatase 166 U/L (38-126); Aspartate Aminotransferase 23 IU/L (17-59); BUN Creatinine Ratio 27.4 (6-22); Bilirubin Total 0.6 mg/dL (0.2-1.3); Blood Urea Nitrogen 26 mg/dL (9-20); Calcium 9.2 mg/dL (8.4-10.2); Carbon Dioxide 30 mmol/L (22-32); Chloride 100 mmol/L (98-107); Estimated Glomerular Filt Rate > 60.0 mL/min (>60); Globulin 3.3 g/dL (1.7-4.1); Glucose 127 mg/dL (80-110); HEMOLYSIS < 15 (0-50); Magnesium 1.5 mg/dL (1.6-2.3); Potassium 4.1 mmol/L (3.4-5.1); Sodium 137 mmol/L (137-145); Total Protein 7.2 g/dL (6.3-8.2)
[2020-09-23 09:56] LABS: Anisocytosis 2+; Hypochromasia 1+; Microcytosis 2+
[2020-09-23 09:57] LABS: Poikilocytosis 1+
[2020-09-23] MEDS: MAGNESIUM SULFATE 2 GM/50 ML PIGGYBACK IV (10:20)
[2020-09-25 09:01] LABS: Cancer (Carbohydrate) Ag 19-9 9845 U/mL (0-35)
[2020-09-26 10:15] LABS: Add Manual Diff / Slide Review NO; Basophils Absolute Auto 100 /uL (0-100); Eosinophils Absolute Auto 300 /uL (0-450); Eosinophils Percent Auto 3.5 % (2-4); Hematocrit 27.9 % (41-53); Hemoglobin 8.7 g/dL (13.5-17.5); Lymphocytes Absolute Auto 1300 /uL (1100-4500); Lymphocytes Percent Auto 15.3 % (25-40); Mean Corpuscular Hemoglobin 22.6 PG (26-34); Monocytes Absolute Auto 1000 /uL (0-900); Monocytes Percent Auto 11.8 % (3-14); Neutrophils Absolute Auto 5600 /uL (1500-7000); Neutrophils Percent Auto 68.4 % (50-75); Platelet Count 296 X10^3/uL (150-400); Red Blood Cell Count 3.83 X10^6/uL (4.5-5.9); Red Cell Distribution Width 21.9 % (11.6-14.8); White Blood Cell Count 8.2 X10^3/uL (4.5-11.0)
[2020-09-26 10:23] LABS: Alanine Aminotransferase 17 IU/L (<50); Albumin 3.9 g/dL (3.5-5.0); Albumin Globulin Ratio 1.1 (1.0-2.8); Alkaline Phosphatase 151 U/L (38-126); Aspartate Aminotransferase 25 IU/L (17-59); BUN Creatinine Ratio 35.6 (6-22); Bilirubin Total 0.7 mg/dL (0.2-1.3); Blood Urea Nitrogen 31 mg/dL (9-20); Calcium 9.2 mg/dL (8.4-10.2); Carbon Dioxide 28 mmol/L (22-32); Chloride 103 mmol/L (98-107); Estimated Glomerular Filt Rate > 60.0 mL/min (>60); Globulin 3.4 g/dL (1.7-4.1); Glucose 132 mg/dL (80-110); HEMOLYSIS < 15 (0-50); Magnesium 1.4 mg/dL (1.6-2.3); Potassium 3.6 mmol/L (3.4-5.1); Sodium 139 mmol/L (137-145); Total Protein 7.3 g/dL (6.3-8.2)
[2020-09-26 10:55] LABS: Anisocytosis 2+; Hypochromasia 1+; Ovalocytes 1+
[2020-09-26 11:13] VITALS: BP 127/61; PULSE 93; RESP 18; TEMP 36.9; O2SAT 98
[2020-09-26] MEDS: LORazepam 0.5 MG TABLET PO (12:46)
[2020-09-26] MEDS: SODIUM CHLORIDE 0.9% 1,000 ML 500 ML IV (12:47)
[2020-09-26] MEDS: ONDANSETRON 16 MG in SODIUM CHLORIDE 0.9% 50 ML 232 ML IV (13:13)
[2020-09-26] MEDS: MAGNESIUM SULFATE 2 GM/50 ML PIGGYBACK IV (13:22)
[2020-09-26] MEDS: FOSAPREPITANT 150 MG in SODIUM CHLORIDE 0.9% 150 ML 300 ML IV (13:41)
[2020-09-26] MEDS: GEMCITABINE HCL IV (15:02)
[2020-09-26] MEDS: SODIUM CHLORIDE 0.9% IV (15:02)
[2020-09-26] MEDS: [UNRECOGNIZED DRUG - OTHER] IV (15:47)
[2020-09-26] MEDS: CISPLATIN IV (15:47)
[2020-09-26] MEDS: POTASSIUM CHLORIDE IV (15:47)
[2020-09-26] MEDS: MANNITOL IV (15:47)
[2020-09-27 06:36] LABS: Cancer (Carbohydrate) Ag 19-9 11647 U/mL (0-35)
[2020-10-03] MEDS: ALTEPLASE 2 MG/2 ML VIAL IV (10:32)
[2020-10-03 11:29] LABS: Add Manual Diff / Slide Review NO; Basophils Absolute Auto 0 /uL (0-100); Basophils Percent Auto 0.7 % (0-2); Eosinophils Absolute Auto 200 /uL (0-450); Eosinophils Percent Auto 3.2 % (2-4); Hematocrit 24.2 % (41-53); Hemoglobin 7.7 g/dL (13.5-17.5); Lymphocytes Absolute Auto 800 /uL (1100-4500); Lymphocytes Percent Auto 14.4 % (25-40); Mean Corpuscular HGB Conc 31.8 % (30-36); Mean Corpuscular Hemoglobin 22.8 PG (26-34); Mean Corpuscular Volume 71.5 fL (80-100); Monocytes Absolute Auto 900 /uL (0-900); Monocytes Percent Auto 15.3 % (3-14); Neutrophils Absolute Auto 3700 /uL (1500-7000); Neutrophils Percent Auto 66.4 % (50-75); Platelet Count 104 X10^3/uL (150-400); Red Blood Cell Count 3.39 X10^6/uL (4.5-5.9); Red Cell Distribution Width 21.8 % (11.6-14.8); White Blood Cell Count 5.6 X10^3/uL (4.5-11.0)
[2020-10-03 11:56] LABS: Alanine Aminotransferase 27 IU/L (<50); Albumin 3.4 g/dL (3.5-5.0); Albumin Globulin Ratio 1.1 (1.0-2.8); Alkaline Phosphatase 145 U/L (38-126); Aspartate Aminotransferase 23 IU/L (17-59); BUN Creatinine Ratio 27.4 (6-22); Bilirubin Total 0.5 mg/dL (0.2-1.3); Blood Urea Nitrogen 23 mg/dL (9-20); Calcium 8.7 mg/dL (8.4-10.2); Carbon Dioxide 30 mmol/L (22-32); Chloride 99 mmol/L (98-107); Estimated Glomerular Filt Rate > 60.0 mL/min (>60); Globulin 3.2 g/dL (1.7-4.1); Glucose 112 mg/dL (80-110); HEMOLYSIS < 15 (0-50); Magnesium 1.7 mg/dL (1.6-2.3); Potassium 3.8 mmol/L (3.4-5.1); Sodium 132 mmol/L (137-145); Total Protein 6.6 g/dL (6.3-8.2)
[2020-10-03 12:15] LABS: Anisocytosis 2+; Microcytosis 1+; Poikilocytosis 2+
[2020-10-03] MEDS: SODIUM CHLORIDE 0.9% 500 ML 1000 ML IV (13:00)
[2020-10-03 14:31] VITALS: BP 128/82; PULSE 72; RESP 18; TEMP 36.8
[2020-10-03 14:47] VITALS: BP 123/64; PULSE 75; RESP 16; TEMP 36.8
[2020-10-03 16:37] VITALS: BP 141/78; PULSE 72; RESP 16; TEMP 37.1
--- NOTE | 2020-10-04 09:49 | ONC.SCHED ---
Faxed records and request for short-term treatment at [facility] per patient's request. Patient will be under the care of Dr. Swanson during his short stay in [place] receiving his infusion therapy as ordered by Dr. House. Spoke with Leydi @ [facility] to ensure that patient is indeed on their schedule. She said he is scheduled for October 10, 2020. If they need any additional information from us, they will call us. Spoke with patient to let him know we faxed the records and confirmed his appointment with them. He is very grateful for our care and follow-through.
--- NOTE | 2020-10-10 10:48 | PC.NURSE ---
Record request; Leydi RN from [facility] requesting pt records. Informed Leydi per documentation, records were already sent on 10/04/20. This RN re faxed information to [facility] and requested them to contact [facility] medical records for if additional records were needed, medical records contact info provided.
[2020-11-13 14:37] LABS: Add Manual Diff / Slide Review NO; Basophils Absolute Auto 100 /uL (0-100); Basophils Percent Auto 0.8 % (0-2); Eosinophils Absolute Auto 200 /uL (0-450); Eosinophils Percent Auto 1.5 % (2-4); Hemoglobin 8.5 g/dL (13.5-17.5); Lymphocytes Absolute Auto 800 /uL (1100-4500); Lymphocytes Percent Auto 5.5 % (25-40); Mean Corpuscular HGB Conc 30.3 % (30-36); Mean Corpuscular Volume 72.7 fL (80-100); Monocytes Absolute Auto 900 /uL (0-900); Monocytes Percent Auto 5.9 % (3-14); Neutrophils Absolute Auto 13100 /uL (1500-7000); Neutrophils Percent Auto 86.3 % (50-75); Platelet Count 218 X10^3/uL (150-400); Red Blood Cell Count 3.85 X10^6/uL (4.5-5.9); White Blood Cell Count 15.2 X10^3/uL (4.5-11.0)
[2020-11-13 14:50] LABS: Alanine Aminotransferase 18 IU/L (<50); Albumin 3.8 g/dL (3.5-5.0); Albumin Globulin Ratio 1.1 (1.0-2.8); Alkaline Phosphatase 154 U/L (38-126); Aspartate Aminotransferase 29 IU/L (17-59); BUN Creatinine Ratio 33.8 (6-22); Bilirubin Total 0.6 mg/dL (0.2-1.3); Blood Urea Nitrogen 44 mg/dL (9-20); Calcium 9.1 mg/dL (8.4-10.2); Carbon Dioxide 24 mmol/L (22-32); Chloride 100 mmol/L (98-107); Estimated Glomerular Filt Rate 54.3 mL/min (>60); Globulin 3.6 g/dL (1.7-4.1); Glucose 217 mg/dL (80-110); HEMOLYSIS < 15 (0-50); Magnesium 1.5 mg/dL (1.6-2.3); Potassium 4.1 mmol/L (3.4-5.1); Sodium 134 mmol/L (137-145); Total Protein 7.4 g/dL (6.3-8.2)
[2020-11-13 14:59] VITALS: BP 115/54; PULSE 93; RESP 16; TEMP 37; O2SAT 98
--- NOTE | 2020-11-13 16:10 | ONC.SCHED ---
Spoke with Breana at [facility] and requested all notes/imaging/labs from recent visits/treatment appointments @ their clinic.
--- NOTE | 2020-11-13 16:10 | PC.NURSE ---
SOB; Pt reports increased SOB. Labs drawn. Vitals obtained. Orders for stat chest Xray entered per Dr. Gar. Pt denies chest pain. Pt reports that upon recent trip to [place] in he was told by his Oncologist there he has about 2 months left. Requesting records from [facility]. Pt placed on Dr. House's schedule to discuss treatment options and plan.
--- NOTE | 2020-11-14 16:45 | ONC.PN ---
PN -Subjective Interval history: ID/CC: 74 year old with recurrent metastatic pancreatic cancer HPI: Antonio Lam is a 74 year old male. 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 He first noticed abnormal umbilicus with discharge with [address] Michael Wen, his climate change analyst, did punch biopsy on 04/08/2018. The pathology showed metastatic adenocarcinoma. The comment indicated that represented a sister Patti briscoe. Cytokeratin 7 was positive. Cytokeratin 20, TTF-1, CDX-[address] chest abdomen and pelvis from 04/21/2018 showed a pancreatic tail mass 3.2 x 1.9 x 1.6 cm with no evidence of distant metastasis aside from known umbilical metastasis. Patient underwent chemotherapy with Gemzar and Abraxane completed 6 cycles in Aug 2018. He tolerated well. He said he was working during chemotherapy. The Abraxane dosage was decreased by 25% for cycle 11 and 12 infusion. He has been under CT image surveillance scan every 2 months On 08/28/2019, CT showed the mass of the tail of the pancreas increased from 1.6 x 1.0 cm to 1.7 x 1.8 cm, and no other sites of disease were seen. PET scan showed uptake in the pancreatic mass. He then completed stereotactic radiation therapy at the end of September 2019. In 01/2020 CT scan showed metastasis and PET scan confirmed metastasis found in ribs, lymph nodes, intestine, groin etc. He was then started on FOLFIRINOX. After 4th cycle, he said no to more chemotherapy. On 05/15/2020 CT scan showed umbilical and pancreatic masses appeared to have decreased, and the left inguinal mass appeared to decrease, but noted progressive disease within the liver and new large saddle embolus. He was referred to ER. He was treated with heparin x 2 days, then Xarelto [address] Vinnie Long at [facility] recommended restarting gemzar and abraxane, and germline testing. On 06/03/2020. BRCA1 and BRCA2 analysis showed no clinically significant mutation identified. He also underwent EasyPost Hereditary Cancer Update Test, and no clinically significant mutation identified. VUS were noted including GALNT12 c.359G>C (p.[id number]), NTHL1 c.527T>C (p.[id number]), and RNF43 c.575C>T (p.[id number]). His works in here and they decided to transfer care from [facility] to [facility]. The patient underwent CT of the chest abdomen pelvis on 06/28/2020. The scan showed new 4 mm right lung upper lobe nodule, interval increase in size of low attenuation hepatic foci, unchanged sclerosis within the ribs, unchanged soft tissue density within the mesenteric fat of the abdomen, and unchanged low attenuation foci within pancreas. At that time, he also observed that the Sister Patti Huff nodule had increased in size and with some yellowish secretions. Patient was started on chemotherapy with gemcitabine and Abraxane on 07/08/2020. Patient experienced significant fatigue (grade 2-3) with this regimen. In addition, the lab results indicated rapid rising CA 19-9 levels suggesting that his tumor is not responding to the regimen. Clinically patient has noticed that the sister Patti Huff node was getting bigger and irritative. Therefore during his visit on 09/09/2020, we decided to change chemotherapy to gemcitabine and cisplatin. Interval Events 10/09/2020 chemotherapy gem/cis. He was sick afterwards, and no strength. He is still fatigued. He has done some light physical activity, and had to take a break. He was worried about hemoglobin and checked it was 8-9. He did not he needed transfusion. No fever, no chill. He is not shortness of breath when sitting, but when getting up, he got shortness of breath. He has some periumbilical pain, more like hunger pain. - Patient Self-Reported Symptoms SR Constitution: Fatigue/Malaise SR ears, nose, mouth, throat issues: Cough SR Gastrointestinal issues: Poor or no appetite - Additional ROS All systems PM: reviewed and no additional remarkable complaints except as stated Home Medications and Allergies Home Medications Medication Instructions Recorded Confirmed Type atorvastatin 20 mg PO DAILY 06/27/20 09/23/20 History dutasteride-tamsulosin 1 cap PO DAILY 06/27/20 09/23/20 History losartan-hydrochlorothiazide 1 tab DAILY 06/27/20 09/23/20 History rivaroxaban [Xarelto] 20 mg PO DAILY 06/27/20 09/23/20 History codeine-guaifenesin 10 ml PO Q4-6H PRN #250 ml 09/09/20 09/23/20 Rx magnesium oxide 400 mg PO BID #60 cap 11/14/20 Rx Allergies Allergy/AdvReac Type Severity Reaction Status Date / Time No Known Drug Allergies Allergy Verified 11/03/19 08:48 Exam Vital signs: 11/17/20 14:18 Last Vital Signs Temp 97.7 F 11/14/20 17:11 Pulse 88 11/14/20 17:11 Resp 16 11/14/20 17:11 BP 150/64 H 11/14/20 17:11 Pulse Ox 99 11/14/20 17:11 - Constitutional positive no acute distress, positive chronically ill appearing, positive cooperative - Routine HEENT Exam Head: Present: normocephalic, atraumatic Eye: Present: EOMI, PERRL, normal accommodation. Absent: conjunctival icterus - Routine Neck Exam Present: supple. Absent: lymphadenopathy, thyromegaly - Routine Chest/Breast/Axilla Exam Axillae: Absent: lymphadenopathy - Routine Respiratory Exam Present: Clear to auscultation bilaterally. Absent: wheezes - Routine Cardiovascular Exam Present: RRR, S2. Absent: murmur, gallop, rubs - Routine Abdominal Exam Present: soft. Absent: tenderness, distended Palpation/Percussion: Absent: hepatomegaly, splenomegaly - Routine Extremities Exam Absent: edema - Routine Neurological Exam Present: alert, oriented X3, CN II-XII intact. Absent: sensory deficit, motor deficit - Routine Psychiatric Exam Present: normal affect Results - Labs Laboratory Last Values WBC 15.2 X10^3/uL (4.5-11.0) H 11/13/20 14:12 RBC 3.85 X10^6/uL (4.5-5.9) L 11/13/20 14:12 Hgb 8.5 g/dL (13.5-17.5) L 11/13/20 14:12 Hct 28.0 % (41-53) L 11/13/20 14:12 MCV 72.7 fL (80-100) L 11/13/20 14:12 MCH 22.0 PG (26-34) L 11/13/20 14:12 MCHC 30.3 % (30-36) 11/13/20 14:12 RDW 20.0 % (11.6-14.8) H 11/13/20 14:12 Plt Count 218 X10^3/uL (150-400) 11/13/20 14:12 Neut % (Auto) 86.3 % (50-75) H 11/13/20 14:12 Lymph % (Auto) 5.5 % (25-40) L 11/13/20 14:12 [place] % (Auto) 5.9 % (3-14) 11/13/20 14:12 Eos % (Auto) 1.5 % (2-4) L 11/13/20 14:12 Baso % (Auto) 0.8 % (0-2) 11/13/20 14:12 Neut # (Auto) 60999 /uL (3770-3616) H 11/13/20 14:12 Lymph # (Auto) 800 /uL (4865-9861) L 11/13/20 14:12 [place] # (Auto) 900 /uL (0-900) 11/13/20 14:12 Eos # (Auto) 200 /uL (0-450) 11/13/20 14:12 Baso # (Auto) 100 /uL (0-100) 11/13/20 14:12 RBC Morphology See below 10/03/20 11:20 Polychromasia 1+ H 08/19/20 09:10 Hypochromasia 1+ H 09/26/20 10:00 Poikilocytosis 2+ H 10/03/20 11:20 Basophilic Stippling 1+ H 08/19/20 09:10 Anisocytosis 2+ H 10/03/20 11:20 Microcytosis 1+ H 10/03/20 11:20 Ovalocytes 1+ H 09/26/20 10:00 Sodium 134 mmol/L (137-145) L 11/13/20 14:12 Potassium 4.1 mmol/L (3.4-5.1) 11/13/20 14:12 Chloride 100 mmol/L (98-107) 11/13/20 14:12 Carbon Dioxide 24 mmol/L (22-32) 11/13/20 14:12 BUN 44 mg/dL (9-20) H 11/13/20 14:12 Creatinine 1.30 mg/dL (0.66-1.25) H 11/13/20 14:12 Estimated GFR 54.3 mL/min (>60) L 11/13/20 14:12 BUN/Creatinine Ratio 33.8 (6-22) H 11/13/20 14:12 Glucose 217 mg/dL (80-110) H 11/13/20 14:12 Calcium 9.1 mg/dL (8.4-10.2) 11/13/20 14:12 Magnesium 1.5 mg/dL (1.6-2.3) L 11/13/20 14:12 Total Bilirubin 0.6 mg/dL (0.2-1.3) 11/13/20 14:12 AST 29 IU/L (17-59) 11/13/20 14:12 ALT 18 IU/L (<50) 11/13/20 14:12 Alkaline Phosphatase 154 U/L (38-126) H 11/13/20 14:12 Total Protein 7.4 g/dL (6.3-8.2) 11/13/20 14:12 Albumin 3.8 g/dL (3.5-5.0) 11/13/20 14:12 Globulin 3.6 g/dL (1.7-4.1) 11/13/20 14:12 Albumin/Globulin Ratio 1.1 (1.0-2.8) 11/13/20 14:12 CA 19-9 Antigen 42866 U/mL (0-35) H 09/26/20 10:00 Blood Type A Positive 10/03/20 11:20 Antibody Screen Negative 10/03/20 11:20 Crossmatch See Detail 10/03/20 11:20 Assessment and Plan (1) Pancreatic malignant neoplasm Overview: 74 year old male with metastatic pancreatic cancer diagnosed on 04/08/2018 after punch biopsy of a sister Patti briscoe. After diagnosis, he has received Gemzar and Abraxane completed in 08/2018. He had disease progression in 01/2020, he received FOLFIRINOX for [address] 05/15/2020 showed evidence of response and incidental findings of large saddle pulmonary embolism. He was started on heparin and then Xarelto. On 06/03/2020. BRCA1 and BRCA2 analysis showed no clinically significant mutation identified. He also underwent [employer]Post Hereditary Cancer Update Test, and no clinically significant mutation identified. VUS were noted including GALNT12 c.359G>C (p.[id number]), NTHL1 c.527T>C (p.[id number]), and RNF43 c.575C>T (p.[id number]). Dr. Vinnie Long, his medical oncologist, at [facility] recommended restarting gemzar and abraxane. His works in here and he decided to transfer care from [facility] to [facility]. Patient was started on chemotherapy with gemcitabine and Abraxane on 07/08/2020. Assessment: Overall clinically, he remained stable. I told him that I will repeat staging study first and then will discuss with him about resuming chemotherapy or switching therapy to nan-iri containing regimen. Plan: Hold chemotherapy CT CAP wo contrast RTC in 3 weeks
[2020-11-14 17:11] VITALS: BP 150/64; PULSE 88; RESP 16; TEMP 36.5; O2SAT 99
--- NOTE | 2020-11-18 13:49 | ONC.SCHED ---
Left msg for patient to get him scheduled for CT scan and follow up on VM.
--- NOTE | 2020-11-18 14:07 | ONC.SCHED ---
Patient called back and I was able to get him scheduled for CT scan 11/21/20 11 AM check in time; clear liquids only after 8:30AM. Follow up apt. is 12/05/20 at 4PM check in time. Gave this info to the patient.
--- NOTE | 2020-11-25 17:01 | ONC.PN ---
PN -Subjective Interval history: ID/CC: 74 year old with recurrent metastatic pancreatic cancer HPI: Antonio Lam is a 74 year old male. 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 He first noticed abnormal umbilicus with discharge with [address] Michael Wen, his die polisher, did punch biopsy on 04/08/2018. The pathology showed metastatic adenocarcinoma. The comment indicated that represented a sister Patti briscoe. Cytokeratin 7 was positive. Cytokeratin 20, TTF-1, CDX-[address] chest abdomen and pelvis from 04/21/2018 showed a pancreatic tail mass 3.2 x 1.9 x 1.6 cm with no evidence of distant metastasis aside from known umbilical metastasis. Patient underwent chemotherapy with Gemzar and Abraxane completed 6 cycles in Aug 2018. He tolerated well. He said he was working during chemotherapy. The Abraxane dosage was decreased by 25% for cycle 11 and 12 infusion. He has been under CT image surveillance scan every 2 months On 08/28/2019, CT showed the mass of the tail of the pancreas increased from 1.6 x 1.0 cm to 1.7 x 1.8 cm, and no other sites of disease were seen. PET scan showed uptake in the pancreatic mass. He then completed stereotactic radiation therapy at the end of September 2019. In 01/2020 CT scan showed metastasis and PET scan confirmed metastasis found in ribs, lymph nodes, intestine, groin etc. He was then started on FOLFIRINOX. After 4th cycle, he said no to more chemotherapy. On 05/15/2020 CT scan showed umbilical and pancreatic masses appeared to have decreased, and the left inguinal mass appeared to decrease, but noted progressive disease within the liver and new large saddle embolus. He was referred to ER. He was treated with heparin x 2 days, then Xarelto [address] Vinnie Long at [facility] recommended restarting gemzar and abraxane, and germline testing. On 06/03/2020. BRCA1 and BRCA2 analysis showed no clinically significant mutation identified. He also underwent Inspirato Hereditary Cancer Update Test, and no clinically significant mutation identified. VUS were noted including GALNT12 c.359G>C (p.[id number]), NTHL1 c.527T>C (p.[id number]), and RNF43 c.575C>T (p.[id number]). His works in here and they decided to transfer care from [facility] to [facility]. The patient underwent CT of the chest abdomen pelvis on 06/28/2020. The scan showed new 4 mm right lung upper lobe nodule, interval increase in size of low attenuation hepatic foci, unchanged sclerosis within the ribs, unchanged soft tissue density within the mesenteric fat of the abdomen, and unchanged low attenuation foci within pancreas. At that time, he also observed that the Sister Patti Huff nodule had increased in size and with some yellowish secretions. Patient was started on chemotherapy with gemcitabine and Abraxane on 07/08/2020. Patient experienced significant fatigue (grade 2-3) with this regimen. In addition, the lab results indicated rapid rising CA 19-9 levels suggesting that his tumor is not responding to the regimen. Clinically patient has noticed that the sister Patti Huff node was getting bigger and irritative. Therefore during his visit on 09/09/2020, we decided to change chemotherapy to gemcitabine and cisplatin. Interval Events The patient received 2 cycles of Gemcitabine and cisplatin. He completed his second cycle on 09/26/2020. Antonio came in today accompanied by his for a unscheduled visit. He was having a lot of difficulties with the chemotherapy Loving/Cis. The main complaint has been the extreme fatigue. Initially, he was found have hypomagnesemia. I recommended magnesium oxide. Antonio said that he felt much better after taking oral magnesium oxide. But about one week later, he felt fatigue again. In addition to fatigue, he is also complaining pain in the epigastric area. He denies fever or chills. Denies nausea or vomiting. Denies diarrhea or constipation. To evaluate response to chemotherapy, he underwent CT CAP without contrast on 11/21/2020. The scan showed interval progression in soft tissue mass involving the body/tail of the pancreas abutting closely the posterior gastric wall. It showed progressive hepatic and pulmonary metastases, increased foal sclerosis involving the right lateral 7th rib suspicious for osseous metastatic disease, and enlarging mesenteric lymph node. - Patient Self-Reported Symptoms SR Constitution: Fatigue/Malaise SR ears, nose, mouth, throat issues: Cough SR Gastrointestinal issues: Poor or no appetite - Additional ROS All systems PM: reviewed and no additional remarkable complaints except as stated Home Medications and Allergies Home Medications Medication Instructions Recorded Confirmed Type atorvastatin 20 mg PO DAILY 06/27/20 09/23/20 History dutasteride-tamsulosin 1 cap PO DAILY 06/27/20 09/23/20 History losartan-hydrochlorothiazide 1 tab DAILY 06/27/20 09/23/20 History rivaroxaban [Xarelto] 20 mg PO DAILY 06/27/20 09/23/20 History magnesium oxide 400 mg PO BID #60 cap 11/14/20 Rx codeine-guaifenesin 10 ml PO Q4-6H PRN #500 ml 11/25/20 Rx pantoprazole 40 mg PO DAILY #30 tab 11/25/20 Rx Allergies Allergy/AdvReac Type Severity Reaction Status Date / Time No Known Drug Allergies Allergy Verified 11/03/19 08:48 Exam Vital signs: 11/25/20 22:26 Last Vital Signs Temp 97.8 F 11/25/20 17:12 Pulse 100 H 11/25/20 17:12 Resp 18 11/25/20 17:12 BP 148/63 H 11/25/20 17:12 Pulse Ox 100 11/25/20 17:12 - Constitutional positive no acute distress, positive thin, positive chronically ill appearing, positive cooperative - Routine HEENT Exam Head: Present: normocephalic, atraumatic Eye: Present: EOMI, PERRL, normal accommodation. Absent: conjunctival icterus - Routine Neck Exam Present: supple. Absent: lymphadenopathy, thyromegaly - Routine Chest/Breast/Axilla Exam Axillae: Absent: lymphadenopathy - Routine Respiratory Exam Present: Clear to auscultation bilaterally. Absent: wheezes - Routine Cardiovascular Exam Present: RRR, S1, S2. Absent: murmur, gallop, rubs - Routine Abdominal Exam Present: soft (Sister Patti Huff node noted slightly bigger than previous visit. ). Absent: organomegaly - Routine Extremities Exam Absent: edema - Routine Neurological Exam Present: alert, oriented X3, CN II-XII intact, normal reflexes. Absent: sensory deficit, motor deficit - Routine Psychiatric Exam Present: normal affect Results - Labs Laboratory Last Values WBC 15.2 X10^3/uL (4.5-11.0) H 11/13/20 14:12 RBC 3.85 X10^6/uL (4.5-5.9) L 11/13/20 14:12 Hgb 8.5 g/dL (13.5-17.5) L 11/13/20 14:12 Hct 28.0 % (41-53) L 11/13/20 14:12 MCV 72.7 fL (80-100) L 11/13/20 14:12 MCH 22.0 PG (26-34) L 11/13/20 14:12 MCHC 30.3 % (30-36) 11/13/20 14:12 RDW 20.0 % (11.6-14.8) H 11/13/20 14:12 Plt Count 218 X10^3/uL (150-400) 11/13/20 14:12 Neut % (Auto) 86.3 % (50-75) H 11/13/20 14:12 Lymph % (Auto) 5.5 % (25-40) L 11/13/20 14:12 Davis % (Auto) 5.9 % (3-14) 11/13/20 14:12 Eos % (Auto) 1.5 % (2-4) L 11/13/20 14:12 Baso % (Auto) 0.8 % (0-2) 11/13/20 14:12 Neut # (Auto) 56022 /uL (8381-1553) H 11/13/20 14:12 Lymph # (Auto) 800 /uL (3945-3919) L 11/13/20 14:12 Davis # (Auto) 900 /uL (0-900) 11/13/20 14:12 Eos # (Auto) 200 /uL (0-450) 11/13/20 14:12 Baso # (Auto) 100 /uL (0-100) 11/13/20 14:12 RBC Morphology See below 10/03/20 11:20 Polychromasia 1+ H 08/19/20 09:10 Hypochromasia 1+ H 09/26/20 10:00 Poikilocytosis 2+ H 10/03/20 11:20 Basophilic Stippling 1+ H 08/19/20 09:10 Anisocytosis 2+ H 10/03/20 11:20 Microcytosis 1+ H 10/03/20 11:20 Ovalocytes 1+ H 09/26/20 10:00 Sodium 134 mmol/L (137-145) L 11/13/20 14:12 Potassium 4.1 mmol/L (3.4-5.1) 11/13/20 14:12 Chloride 100 mmol/L (98-107) 11/13/20 14:12 Carbon Dioxide 24 mmol/L (22-32) 11/13/20 14:12 BUN 44 mg/dL (9-20) H 11/13/20 14:12 Creatinine 1.30 mg/dL (0.66-1.25) H 11/13/20 14:12 Estimated GFR 54.3 mL/min (>60) L 11/13/20 14:12 BUN/Creatinine Ratio 33.8 (6-22) H 11/13/20 14:12 Glucose 217 mg/dL (80-110) H 11/13/20 14:12 Calcium 9.1 mg/dL (8.4-10.2) 11/13/20 14:12 Magnesium 1.5 mg/dL (1.6-2.3) L 11/13/20 14:12 Total Bilirubin 0.6 mg/dL (0.2-1.3) 11/13/20 14:12 AST 29 IU/L (17-59) 11/13/20 14:12 ALT 18 IU/L (<50) 11/13/20 14:12 Alkaline Phosphatase 154 U/L (38-126) H 11/13/20 14:12 Total Protein 7.4 g/dL (6.3-8.2) 11/13/20 14:12 Albumin 3.8 g/dL (3.5-5.0) 11/13/20 14:12 Globulin 3.6 g/dL (1.7-4.1) 11/13/20 14:12 Albumin/Globulin Ratio 1.1 (1.0-2.8) 11/13/20 14:12 CA 19-9 Antigen 35319 U/mL (0-35) H 09/26/20 10:00 Blood Type A Positive 10/03/20 11:20 Antibody Screen Negative 10/03/20 11:20 Crossmatch See Detail 10/03/20 11:20 Assessment and Plan (1) Pancreatic malignant neoplasm Overview: 74 year old male with metastatic pancreatic cancer diagnosed on 04/08/2018 after punch biopsy of a sister Patti Refugio nodule. After diagnosis, he has received Gemzar and Abraxane completed in 08/2018. He had disease progression in 01/2020, he received FOLFIRINOX for [address] 05/15/2020 showed evidence of response and incidental findings of large saddle pulmonary embolism. He was started on heparin and then Xarelto. On 06/03/2020. BRCA1 and BRCA2 analysis showed no clinically significant mutation identified. He also underwent Inspirato Hereditary Cancer Update Test, and no clinically significant mutation identified. VUS were noted including GALNT12 c.359G>C (p.[id number]), NTHL1 c.527T>C (p.[id number]), and RNF43 c.575C>T (p.[id number]). Dr. Vinnie Long, his medical oncologist, at [facility] recommended restarting gemzar and abraxane. His works in here and he decided to transfer care from [facility] to [facility]. Patient was started on chemotherapy with gemcitabine and Abraxane on 07/08/2020.He completed 3 cycles and before decided to switch to Gemplatin and cisplatin due to disease progression. Assessment: First of all I reviewed the CT scan results with the patient. I compared the CT scans with the CT scan of June 2020. The scan clearly showed disease progression both in the lung as well as in the abdomen. The cyst Refugio node also has become more prominent than before. The laboratory tests recently obtained also showed significant increase in the tumor marker CA 19-9. Patient said that he was not surprised he understood that his underlying disease has become resistant to the chemotherapy and also has progressed. He said he can tell by himself. He said he is becoming more fatigue and tired. He is also having nonstop in cough continuously. The only medication that works is the codeine guanefesin. In addition patient is having epigastric pain. I explained to the patient about the potential options at this stage. I talked about first is the medication we talked about during his previous visit. That is the nanoparticle irinotecan together with 5 FU. I talked with him that these medications are once every 2 weeks. The response rate is in the teens. Patient and patient's both voiced concerns that the patient may not be able to tolerate this chemotherapy. They want to have a good quality of time for the remaining times. Next I talked about the possible options of re-biopsy of the system Patti Huff. I will send out the sample for molecular studies. Hopefully that the molecular study will provide more information regarding and guiding the next treatment. Overall it seems to me that patient and patient's are not interested. Then I talked about the possibility of clinical trials. I talked with them that clinical trial usually test for new experimental treatment. If patient agrees, I will refer the patient to [facility]. However patient and patient's both voiced their disagreement with clinical trials. Then I talked about palliative and hospice care. I think the palliative care and hospice can help with patient's clinical situations including fatigue, cough, and pain problems. Patient said that they would like a referral to hospice. The patient said he would like to know about [facility]. He would like to get more information, but not necessarily will commit to hospice care. He will continue follow-up with me as previously scheduled on 12/05/2020. Today I ordered 500 cc of codeine and guanefisim for cough control and also ordered Protonix for epigastric pain. I will also repeat the lab tests. Patient's clinical symptoms partially are accounted for by the anemia. Will proceed with blood transfusion for symptomatic improvement. Plan: Stop chemotherapy CBC, CMP, CA 19-9 pRBC 2 units Codeine/Guanefesin 10/100 Pantoprozole 40 mg daily Hospice referral RTC on 12/05/2020.
[2020-11-25 17:12] VITALS: BP 148/63; PULSE 100; RESP 18; TEMP 36.6; O2SAT 100
--- NOTE | 2020-11-26 09:04 | ONC.MSW ---
Description: Hospice Info Visit Referral Activity: [employer] faxed clinicals and request for an info visit to [facility]. No further needs are indicated at this time.
[2020-11-26 10:59] VITALS: BP 134/57; PULSE 85; RESP 20; TEMP 37.1
[2020-11-26 11:17] VITALS: BP 121/53; PULSE 85; RESP 16; TEMP 36.9
[2020-11-26 14:19] LABS: Add Manual Diff / Slide Review NO; Basophils Absolute Auto 100 /uL (0-100); Basophils Percent Auto 0.7 % (0-2); Eosinophils Absolute Auto 600 /uL (0-450); Eosinophils Percent Auto 4.6 % (2-4); Hemoglobin 8.4 g/dL (13.5-17.5); Lymphocytes Absolute Auto 1200 /uL (1100-4500); Mean Corpuscular Hemoglobin 22.9 PG (26-34); Mean Corpuscular Volume 73.8 fL (80-100); Monocytes Absolute Auto 1400 /uL (0-900); Monocytes Percent Auto 11.4 % (3-14); Neutrophils Absolute Auto 8700 /uL (1500-7000); Neutrophils Percent Auto 73.3 % (50-75); Platelet Count 180 X10^3/uL (150-400); Red Blood Cell Count 3.67 X10^6/uL (4.5-5.9); Red Cell Distribution Width 19.9 % (11.6-14.8); White Blood Cell Count 11.9 X10^3/uL (4.5-11.0)
[2020-11-26 14:44] LABS: Alanine Aminotransferase 17 IU/L (<50); Albumin 3.2 g/dL (3.5-5.0); Alkaline Phosphatase 132 U/L (38-126); Aspartate Aminotransferase 42 IU/L (17-59); BUN Creatinine Ratio 30.2 (6-22); Bilirubin Total 0.8 mg/dL (0.2-1.3); Blood Urea Nitrogen 32 mg/dL (9-20); Calcium 8.5 mg/dL (8.4-10.2); Carbon Dioxide 28 mmol/L (22-32); Chloride 104 mmol/L (98-107); Estimated Glomerular Filt Rate > 60.0 mL/min (>60); Globulin 3.1 g/dL (1.7-4.1); Glucose 122 mg/dL (80-110); HEMOLYSIS 21 (0-50); Potassium 4.4 mmol/L (3.4-5.1); Sodium 136 mmol/L (137-145); Total Protein 6.3 g/dL (6.3-8.2)
[2020-11-26 15:01] VITALS: BP 128/56; PULSE 79; RESP 20; TEMP 37.1
[2020-11-26 15:20] VITALS: BP 136/59; PULSE 79; RESP 20; TEMP 36.8
[2020-11-26 17:32] VITALS: BP 137/62; PULSE 80; RESP 18; TEMP 36.4
[2020-11-27 09:45] LABS: Cancer (Carbohydrate) Ag 19-9 15432 U/mL (0-35)
--- NOTE | 2020-12-05 15:41 | PC.NURSE ---
message left on pt's cell number about possible hospice and if he wants to con't with appt.
== END ==
PROVIDERS: Referring Provider Internal Medicine Hematology & Oncology; Visit Provider Internal Medicine Hematology & Oncology
DX: C25.2 Malignant neoplasm of tail of pancreas (principal); C79.2 Secondary malignant neoplasm of skin; C79.51 Secondary malignant neoplasm of bone; C77.9 Secondary and unspecified malignant neoplasm of lymph node, unspecified; C78.5 Secondary malignant neoplasm of large intestine and rectum; C78.7 Secondary malignant neoplasm of liver and intrahepatic bile duct
CPT/HCPCS: 36415; 36430; 36591; 71046; 80053; 83735; 85025; 86301; 86850; 86900; 86901; 96360; 96361; 96365; 96366; 96375; 96413; 96415; 96417; 99204; 99214; 99215; P9016; J1100; J1453; J1642; J2150; J2405; J2997; J3475; J3480; J9060; J9201; J9264